=== PATIENT | male | born 1980 | race Hispanic/Latino ===

== ENCOUNTER 2020-08-29 11:06 | Outpatient (CLI) | payer OTHER, SELFPAY ==
--- NOTE | ~2020-08-29 | XR_ITS ---
EXAMINATION: XR finger 3rd LT min 2V DATE: 08/29/2020 11:33 INDICATION: Pain and inability to move the third distal interphalangeal joint post injury. TECHNIQUE: Dorsal palmar, lateral and 2 oblique views of the left third digit were obtained COMPARISON: Left hand radiographs dated 12/16/2011 FINDINGS: Mallet finger deformity of the left third digit. Unchanged tiny ossicle without evident donor site al ester the palmar rim of the base of the left third middle phalanx which could be either degenerative or sequela of old trauma. No acute fracture. Joint spaces are normal. Soft tissues are unremarkable. IMPRESSION: 1. . Mallet finger deformity with flexion at the left third distal interphalangeal joint without othe r acute osseous abnormality which could be related to injury to the extensor tendon. Reviewed, dictated and finalized at location B. IMPRESSION: 1. . Mallet finger deformity with flexion at the left third distal interphalang eal joint without other acute osseous abnormality which could be related to inj ury to the extensor tendon.
== END 2020-08-29 11:07 | disposition home or self-care (01) ==
LOC: ANHIMG 11:20
PROVIDERS: PCP Family Medicine; Visit Provider Nurse Practitioner Family
DX: M20.012 Mallet finger of left finger(s) (principal)
CPT/HCPCS: 73140

== ENCOUNTER 2022-08-08 07:49 | Outpatient (CLI) | payer OTHER, SELFPAY ==
[2022-08-08 08:35] LABS: Alanine Aminotransferase 24 U/L (6-50); Albumin Level 4.5 g/dL (3.5-5.1); Alkaline Phosphatase 59 U/L (38-126); Anion Gap 9 mmol/L (8-16); Aspartate Amino Transferase 24 U/L (17-59); Bilirubin,Total 0.6 mg/dL (0.2-1.3); Blood Urea Nitrogen 15 mg/dL (9-20); Carbon Dioxide 27 mmol/L (22-30); Chloride 103 mmol/L (98-107); Cholesterol 194 mg/dL (0-200); Estimated Glomerular Filt Rate > 60; Glucose 114 mg/dL (65-110); HDL Direct 39 mg/dL; Potassium 4.2 mmol/L (3.4-5.0); Sodium 139 mmol/L (137-145); Triglycerides 253 mg/dL (<150)
[2022-08-08 08:47] LABS: LDL Cholesterol Direct 112 mg/dL
[2022-08-08 08:50] LABS: Hematocrit 45.5 % (42.0-52.0); Hemoglobin 15.8 g/dL (14.0-18.0); Mean Corpuscular HGB Conc 34.7 g/dl (32-36); Mean Corpuscular Hemoglobin 31.1 pg (26-34); Mean Corpuscular Volume 89.6 fl (80-100); Mean Platelet Volume 9.8 fl (7.4-10.4); Platelet Count Result 178 k/mm3 (150-375); Red Blood Count 5.08 M/mm3 (4.6-6.20); Red Cell Distribution Width 12.8 % (11.5-14.5); White Blood Count 6.8 K/mm3 (4.5-10.0)
[2022-08-08 09:05] LABS: Prostate Specific Antigen 0.5 ng/mL (< OR = 4.0)
[2022-08-08 20:24] LABS: Vitamin D 25 Hydroxy 37.6 ng/mL
[2022-08-13 13:45] LABS: Testosterone Free 66.6 pg/mL (35.0-155.0); Testosterone Total 258 ng/dL (250-1100)
== END 2022-08-08 07:50 | disposition home or self-care (01) ==
LOC: ANHLAB 07:50
PROVIDERS: PCP Family Medicine; Visit Provider Nurse Practitioner Family
DX: Z13.29 Encounter for screening for other suspected endocrine disorder (principal); Z13.220 Encounter for screening for lipoid disorders; Z12.5 Encounter for screening for malignant neoplasm of prostate; R53.83 Other fatigue; K21.9 Gastro-esophageal reflux disease without esophagitis; E55.9 Vitamin D deficiency, unspecified; Z87.19 Personal history of other diseases of the digestive system; Z13.1 Encounter for screening for diabetes mellitus; F41.9 Anxiety disorder, unspecified
CPT/HCPCS: 36415; 80053; 80061; 82306; 84153; 84402; 84403; 84443; 85027

== ENCOUNTER 2022-09-10 09:42 | Outpatient (CLI) | payer OTHER, SELFPAY ==
[2022-09-10 10:04] LABS: Glucose 105 mg/dL (65-110)
== END 2022-09-10 09:43 | disposition home or self-care (01) ==
LOC: ANHLAB 09:43
PROVIDERS: PCP Family Medicine; Visit Provider Nurse Practitioner Family
DX: R73.01 Impaired fasting glucose (principal)
CPT/HCPCS: 36415; 82947

== ENCOUNTER 2022-09-24 01:21 | Day surgery (SDC) | payer OTHER, SELFPAY ==
[2022-09-19 10:44] VITALS: BMI 29.0
[2022-09-24 13:52] VITALS: BP 157/91; PULSE 65; RESP 17; TEMP 36.5; O2SAT 99
[2022-09-24] MEDS: LACTATED RINGERS 1,000 ML 150 ML IV CONT (14:00)
--- NOTE | 2022-09-24 14:08 | WPDANESEPPF ---
Anes - Initial Pre Proc Eval Procedure: Operation Date: 09/24/22 15:00 Proposed Procedures p Esophagogastroduodenoscopy EGD - Rodrick Ordaz MD Date/Time: 09/24/22 14:08 Surgeon: Rodrick Ordaz MD Pre Op Diagnosis: epigastric pain & GERD Patient Data Age: 42 Gender: M Height: 1.7 m Weight: 83.7 kg Last Vital Signs Temp 97.7 F 09/24/22 13:52 Pulse 65 09/24/22 13:52 Resp 17 09/24/22 13:52 BP 157/91 H 09/24/22 13:52 Pulse Ox 99 09/24/22 13:52 O2 Del Method Room Air 09/24/22 13:52 Allergies Allergy/AdvReac Type Severity Reaction Status Date / Time Sulfa (Sulfonamide Allergy Rash Verified 09/24/22 13:51 Antibiotics) Home Medications Medication Instructions Recorded Confirmed Type omeprazole 10 mg capsule,delayed 10 mg PO DAILY 08/30/20 09/24/22 History release duloxetine 30 mg capsule,delayed 30 mg PO DAILY #30 caps 08/07/22 09/24/22 Rx release (Cymbalta) tizanidine 2 mg tablet 2 mg PO QHS PRN muscle spasticity 08/07/22 09/24/22 Rx #20 tabs Patient hx anesthesia problems: none Family hx anesthesia problems: none Results Review: All pre-operative results and documents have been reviewed as part of the pre-operative evaluation. [facility] Surgical History Surgical History History of right knee surgery 07/2013 History of shoulder surgery right shoulder - 2017 Social History Social History Smoking status: Never smoker Alcohol intake: current Alcohol use details: socially Substance use: never Substance use type: does not use Living arrangements: with family Spiritual care concerns: No Anes - Eval Final PreProcedure Day of Procedure 09/24/22 14:08 Patient weight: normal Heart: regular rate and rhythm Lungs: clear to auscultation Airway: Mallampati scale class II Neurological: alert and oriented Last oral intake: >/= 8 hours Emergent: no Anesthetic plan: proceed Anesthesia type and monitoring: general GIVS and standard monitoring Results Review: All pre-operative results and documents have been reviewed as part of the pre-operative evaluation. Informed Consent: The patient's anesthetic plan and its attendant risks and benefits were discussed with the patient/family/POA. Questions were solicited and answers provided to the satisfaction of the patient/family/POA.
--- NOTE | 2022-09-24 14:54 | WPDHPUPDATE1 ---
History and Physical Update Update Date/Time: 09/24/22 14:54 History and Physical has been reviewed, including an updated exam of the patient. There are NO changes in the patient's condition. Risks, benefits, and alternatives have been discussed and questions answered. Patient agrees to proceed with procedure.
[2022-09-24 15:09] VITALS: BP 118/79; PULSE 76; RESP 16; O2SAT 97
[2022-09-24 15:19] VITALS: BP 124/80; PULSE 70; RESP 18; O2SAT 97
[2022-09-24 15:29] VITALS: BP 127/80; PULSE 69; RESP 15; O2SAT 98
== END 2022-09-24 15:41 | disposition home or self-care (01) ==
PROVIDERS: PCP Family Medicine; Visit Provider Internal Medicine Gastroenterology
PROC: 0DJ08ZZ Inspection of Upper Intestinal Tract, Via Natural or Artificial Opening Endoscopic (ICD-10-PCS; CPT 43235; principal; 2022-09-24 15:00)
DX: K21.9 Gastro-esophageal reflux disease without esophagitis (principal)
CPT/HCPCS: 43239; 88305; J2704; J7120

== ENCOUNTER 2023-08-11 10:01 | Outpatient (CLI) | payer BC, OTHER, SELFPAY ==
[2023-08-11 11:24] LABS: Basophils Percent Auto 0.4 % (0.2-1.2); Eosinophils Absolute Auto 0.1 K/mm3 (0-0.3); Eosinophils Percent Auto 0.8 % (0-4.4); Hematocrit 45.4 % (42.0-52.0); Hemoglobin 15.8 g/dL (14.0-18.0); Immature Granulocyte Absolute 0.06 K/mm3 (0.00-0.031); Immature Granulocyte Percent A 0.8 % (0-0.5); Lymphocytes Absolute Auto 1.66 K/mm3 (0.9-3.2); Lymphocytes Percent Auto 23.1 % (18.3-44.2); Mean Corpuscular HGB Conc 34.8 g/dl (32-36); Mean Corpuscular Hemoglobin 31.1 pg (26-34); Mean Corpuscular Volume 89.4 fl (80-100); Mean Platelet Volume 9.7 fl (7.4-10.4); Monocytes Absolute Auto 0.5 K/mm3 (0.1-0.6); Monocytes Percent Auto 7.5 % (2.6-8.5); Neutrophils Absolute Auto 4.8 K/mm3 (1.3-6.7); Neutrophils Percent Auto 67.4 % (45.5-73.1); Platelet Count Result 173 k/mm3 (150-375); Red Blood Count 5.08 M/mm3 (4.6-6.20); Red Cell Distribution Width 12.1 % (11.5-14.5); White Blood Count 7.2 K/mm3 (4.5-10.0)
[2023-08-11 11:41] LABS: Alanine Aminotransferase 28 U/L (6-50); Albumin Level 4.8 g/dL (3.5-5.1); Alkaline Phosphatase 55 U/L (38-126); Anion Gap 5 mmol/L (8-16); Aspartate Amino Transferase 31 U/L (17-59); Bilirubin,Total 0.8 mg/dL (0.2-1.3); Blood Urea Nitrogen 21 mg/dL (9-20); Calcium 9.3 mg/dL (8.4-10.2); Carbon Dioxide 31 mmol/L (22-30); Chloride 102 mmol/L (98-107); Cholesterol 223 mg/dL (0-200); Estimated Glomerular Filt Rate > 60; Glucose 102 mg/dL (65-110); HDL Direct 40 mg/dL; Potassium 4.3 mmol/L (3.4-5.0); Sodium 138 mmol/L (137-145); Triglycerides 268 mg/dL (<150)
[2023-08-11 11:51] LABS: LDL Cholesterol Direct 122 mg/dL
[2023-08-12 17:52] LABS: Prostate Specific Antigen 0.6 ng/mL (< OR = 4.0)
== END 2023-08-11 10:02 | disposition home or self-care (01) ==
LOC: ANHLAB 10:03
PROVIDERS: PCP Family Medicine; Visit Provider Physician Assistant Medical
DX: R73.01 Impaired fasting glucose (principal); Z13.29 Encounter for screening for other suspected endocrine disorder; Z12.5 Encounter for screening for malignant neoplasm of prostate; Z13.220 Encounter for screening for lipoid disorders; Z87.19 Personal history of other diseases of the digestive system; K21.9 Gastro-esophageal reflux disease without esophagitis; E78.5 Hyperlipidemia, unspecified
CPT/HCPCS: 36415; 80053; 80061; 84153; 85025; G0103

== ENCOUNTER 2024-10-30 06:58 | Emergency (ER) | payer OTHER, SELFPAY ==
[2024-10-30 07:09] VITALS: BP 151/95; PULSE 71; RESP 16; TEMP 36.4; O2SAT 99
[2024-10-30] MEDS: TETANUS,DIPHTHERIA,AC PERTUSSIS ADULT (0.5 ML) BOOSTRIX IM (07:36)
--- NOTE | 2024-10-30 07:58 | ED_ITS ---
HPI - General Adult General Chief complaint: Wound/Laceration Stated complaint: finger laceration Time Seen by Provider: 10/30/24 07:17 History of Present Illness HPI narrative: Patient is a 44-year-old gentleman presents emergency department with chief complaint of laceration. Patient reports that he is left-hand dominant reports that he was doing dishes and cut his left index finger with a knife. Related Data Home Medications ?Medication ?Instructions ?Recorded ?Confirmed ?Last Taken ?Type omeprazole 10 mg capsule,delayed 10 mg PO DAILY 08/30/20 08/11/23 09/23/22 History release Allergies Allergy/AdvReac Type Severity Reaction Status Date / Time Sulfa (Sulfonamide Allergy Rash Verified 10/30/24 07:35 Antibiotics) Review of Systems Review of Systems: A 10 system review of systems was completed on the patient and is negative except for what is stated in the HPI. Nursing and ancillary documentation was reviewed. [facility] Past Medical History Medical History BMI 28.0-28.9,adult Surgical History Surgical History History of shoulder surgery right shoulder - 2018 History of right knee surgery 07/2013 Family History Family History Father No problems noted. Mother No problems noted. Sibling No problems noted. 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 Gender identity (if verbalized by the patient): Male Spiritual care concerns: No Exam Narrative: GENERAL: Well-appearing, well-nourished, and in no acute distress. HEAD: Normocephalic, atraumatic. EYES: PERRLA and EOMI. ENT: Nares clear, no rhinorrhea or epistaxis. Mucous membranes moist. NECK: Supple. CHEST: Clear to auscultation. No respiratory distress. HEART: Regular rate and rhythm. No murmur heard. Normal peripheral pulses. ABDOMEN: Soft, nontender, nondistended, normal active bowel sounds. EXTREMITIES: Normal range of motion. No edema. 1 cm laceration to the volar aspect left index finger no tendon laceration, intact motor and sensory SKIN: Warm, dry, no rash. NEURO: No focal deficits. Alert and oriented x3. PSYCH: Normal mood and affect. Course Vital Signs Vital signs: Vital Signs Temperature 36.4 C 10/30/24 07:09 Pulse Rate 71 10/30/24 07:09 Respiratory Rate 16 10/30/24 07:09 Blood Pressure 151/95 H 10/30/24 07:09 Pulse Oximetry 99 10/30/24 07:09 Temperature 36.4 C 10/30/24 07:09 Pulse Rate 71 10/30/24 07:09 Respiratory Rate 16 10/30/24 07:09 Blood Pressure 151/95 H 10/30/24 07:09 Pulse Oximetry 99 10/30/24 07:09 Procedures Laceration Laceration 1: Date: 10/30/24 Time: 08:02 Site: hand ( left index finger) Side (If applicable): left Size (cm): 1 Description: linear Depth: simple, single layer Local Anesthetic: lidocaine 1% Amount of anesthesia used (mL): 3 Pre-repair: wound explored, irrigated and irrigated extensively ====== Skin Level ====== Skin layer closed with: nylon Size (cm): 4-0 Number of sutures: 3 Technique: simple, interrupted ====== Subcutaneous Layer ====== ====== Muscle Layer ====== ====== Tendon Layer ====== Medical Decision Making [facility] Narrative Medical decision making narrative: differential diagnosis includes ear laceration, patient's tetanus status was updated the wound was closed Vital Signs Vital Signs: Vital Signs Temperature 36.4 C 10/30/24 07:09 Pulse Rate 71 10/30/24 07:09 Respiratory Rate 16 10/30/24 07:09 Blood Pressure 151/95 H 10/30/24 07:09 Pulse Oximetry 99 10/30/24 07:09 Temperature 36.4 C 10/30/24 07:09 Pulse Rate 71 10/30/24 07:09 Respiratory Rate 16 10/30/24 07:09 Blood Pressure 151/95 H 10/30/24 07:09 Pulse Oximetry 99 10/30/24 07:09 Discharge Plan Discharge Clinical Impression: Laceration of left index finger Qualifiers: Encounter type: initial encounter Damage to nail status: without damage Foreign body presence: without foreign body Qualified Code(s): S61.211A - Laceration without foreign body of left index finger without damage to nail, initial encounter Patient Disposition: Home, Self-Care Condition: Stable Instructions: Antibiotic Form Additional Instructions: you have 3 sutures that had been placed in your finger. This should be removed in 7-10 days. Please watch for signs of infection if you develop redness swelling drainage of pus from the wound please seek re-evaluation Patient Language: Italian Prescriptions: No Action omeprazole 10 mg capsule,delayed release(DR/EC) 10 mg PO DAILY tizanidine 2 mg tablet 2 mg PO QHS PRN (Reason: muscle spasticity) Qty: 20 0RF Follow-up/Referrals: Josh Cabral MD [Primary Care Provider] - Time of Disposition: 08:05
[2024-10-30 08:23] VITALS: BP 126/87; PULSE 65; RESP 16; O2SAT 100
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
--- OUTSIDE RECORDS SUMMARY | 2024-11-02 20:34 | XMS_ITS | Encounter Summary ---
Author Organization 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
--- OUTSIDE RECORDS SUMMARY | 2024-11-02 20:34 | XMS_ITS | Encounter Summary ---
Author Organization [facility] Address [address] [place] [address] Phone Care Team Providers Care Advice Line Rn Name Role Phone Josh Cabral MD Primary Care Provider [phone] Reason for Visit * Reason Comments Procedure Encounter Details Date Type Department Care Team (Late st Contact Info) Description 06/17/2019 8:45 AM CDT Procedure visit [facility] Gastroenter[facility] [address] [place] [address] [place] [id number] Hepatic steatosis Social History Tobacco Use Types Packs/Day Years Used Date Smoking Tobacco: Never Alcohol Use Standard Drinks/Week Comments Yes 0 (1 standard drink = 0.6 oz pur e alcohol) Sex and Gender Information Value Date Recorded Sex Assigned at Not on file 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 Report printed and given to physician for review. Scanned into chart. documented in this encounter Plan of Treatment Not on file documented as of this encounter Procedures Procedure Name Priority Date/Time Associated Diagnosis Comments LIVER ELASTOGRAPHY W/O IMAGI NG W/I&R Routine 06/17/2019 Hepatic steatosis documented in this encounter Results * Liver Elastography w/o Imaging W/I&R - (06/17/2019) Anatomical Region Laterality Modality Other us Sandy Daugherty MD GI PROCEDURE ORDERAB LES Final Result documented in this encounter Visit Diagnoses Diagnosis Hepatic steatosis Other chronic nonalcoholic liver disease documented in this encounter Care Teams Advice Line Rn Relationship Specialty Start Date End Date Josh Cabral MD PCP - General 06/11/16 documented as of this encounter
--- OUTSIDE RECORDS SUMMARY | 2024-11-02 20:34 | XMS_ITS | Encounter Summary ---
Author Name [facility] Address [address] [place] [id number] Care Team Providers Care Panelbeater Name Role Phone YEN WORKMAN Primary Care Provider Cliff anton Selected Encounter This section includes the information on record at NH for the Encounter. Date/Time Encounter Type Encounter Description Reason Pro vider Source Jan 03, 2024 10:43 AM Outpatient Encounter ADMIN PAT ACTIVTIES (MASNONCT) IHE Encounter Template Text not used by NH Social History: Smoking Status (Most current) and Tobacco Use (All prior to encounter date) This section includes the most current, and the historical, smoking and tobacco- related health factors from the NH facility where the Encounter took place. Current Smoking Status This section includes the most current smoking, or tobacco-related health factor, from the NH facility where the Encounter took place. Date/Time Current Smoking Status Comment Jose ity Aug 08, 2005 12:53 PM CURRENT NON-TOBACC O USER-HX OF USE [facility] Tobacco Use History This section includes a history of the smoking, or tobacco-related health factors, that were collected on or before the date of the Encounter. The data comes from the NH facility where the Encounter took place. Date/Time Smoking Status/Tobacco Use Comment F heidi Aug 08, 2005 12:53 PM TOBACCO TERMINATION STAGE [facility] Nov 03, 2001 01:27 PM CURRENT NON-TOBACC O USER-HX OF USE stopped 09-17 [facility] Encounter Notes: All associated encounter notes This section contains the clinical notes associated to the Encounter. Date/Time Encounter Note(s) Provider Source Jan 03, 2024 10:45 AM ADMINISTRATIVE NOT E: LOCAL TITLE: ADMINISTRATIVE ST STANDARD TITLE: ADMINISTRATIVE NOTE DATE OF NOTE: JAN 03, 2024@10:45 ENTRY DATE: JAN 03, 2024@10:45:06 AUTHOR: NAKITA RODNEY EXP COSIGNER: URGENCY: STATUS: COMPLETED Minimum Scheduling attempts to contact the [facility] have been made. Clinic: NEW PATIENT APPT PRIMARY CARE First Call to - unsuccessful schedulin01/03/2024 Unable to contact , letter sent:01/03/2024 Additional comments:CALLED TO SCHED NEW PT APPT, LMTCB SENT LTTR [facility] was called to offer healthcare with a PCP within the [facility], per enrolled but not seen in project. /betty/ NAKITA RODNEY [employer]ATION ASSISTANT Signed: 01/03/2024 10:45 NAKITA RODNEY [facility] Jan 03, 2024 10:43 AM PRIMARY CARE LETTE RS: LOCAL TITLE: PC NEW PATIENT NO CONTACT LETTER [facility] TITLE: PRIMARY CARE LETTERS DATE OF NOTE: JAN 03, 2024@10:43 ENTRY DATE: JAN 03, 2024@10:43:13 AUTHOR: NAKITA RODNEY EXP COSIGNER: URGENCY: STATUS: COMPLETED [facility] [address] [place] [address] JAN 03, 2024 [place] [address] [address] [place], [place] [address] Dear [place], Thank you for your interest in establishing care with a Primary Care Provider at the [facility]. Your Primary Care Provider is the clinical leader of your Patient Aligned Care Team (PACT). Your PACT Team manages and coordinates your comprehensive health care services. Primary Care includes, but is not limited to: diagnosis and management of acute and chronic health conditions, health promotion, disease prevention, overall care management, post-deployment care, and patient and caregiver education. If you would like more information, please visit [email or web address] We have been unsuccessful in our attempts to contact you to schedule your initial appointment. Based on your current residence, the clinic recommended for your primary care needs is: [place] [address] We are happy to accommodate your request with another clinic, if needed. Please call to schedule your initial appointment. Thank you for your service, and we look forward to hearing from you. Sincerely, NAKITA RODNEY ADVANCED [employer]ATION ASSISTANT [place] [facility]
--- OUTSIDE RECORDS SUMMARY | 2024-11-02 20:34 | XMS_ITS | Encounter Summary ---
Author Organization [facility] Medical [facility] Address [address] [place] [address] Care Team Providers Care Collections Agent Name Role Phone Josh Cabral MD Primary Care Provider + [phone] Reason for Visit * Reason Comments Sleep Apnea AutoPAP Follow Up Encounter Details Date Type Department Care Team (Late st Contact Info) Description 03/02/2021 11:00 AM CDT Telemedicine [facility] [address] [place] [address] [phone] Angely Giraldo, BEAN WEIGHER [address] 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 Subjective/Objective Patient ID: Logan Soto is a 40 y.o. male. This was a telemedicine visit with Logan Soto which took place via Real-time video connection (ralali, [employer] or similar). During the visit, I was located in my office at [address] [place] [address] and the patient was located at his home in the [facility]. The session started at 11:00a.m. and ended at 11:21 a.m.. The patient has been informed that the visit may not be secure and acknowledged the information. I have explained the option of participating in a telephone or video visit during the [facility] emergency to the patient. After being given an opportunity to ask questions about and discuss this type of visit, the patient verbally consented to proceeding with the telephone/video visit.The patient understands that this service replaces an office visit and they may be billed and/or responsible for any applicable copayments. Angely Giraldo NP Chief Complaint Sleep Apnea and AutoPAP Follow Up HPI The patient has follow-up today for sleep apnea. He was originally diagnosed with sleep apnea on January 18, 2015 with an apnea-hypopnea index of 11 and desaturations to 91%. He is using air sense 10 APAP set from 4-20 cm water pressure with 97% use greater than 4 hours review of the last 30 nights. His average nightly use is 8 hours and 10 minutes with good control of apneas with an AHI of 2.3 events per hour. A very good mask seal is noted with his Airfit P 10 medium nasal pillows with the median leak of 0 liters/minute. His APAP pressures ranging from 7.3 to maximum 11.1 cm water pressure. Heis benefitting from the use of his APAP machine. Patient's comorbid conditions include GERD, arthritis and BMI of 27. He denies any changes in his health history. He has lost 7 lb since his last office visit. Campbell Sleepiness Scale & Score (1-24): Campbell Sleepiness Scale Sitting and reading: Would never doze Watching TV: Would never doze Sitting, inactive in a public place (e.g. a theatre or a meeting): Would never doze As a passenger in a car for an hour without a break: Would never doze Lying down to rest in the afternoon when circumstances permit: Would never doze Sitting and talking to someone: Would never doze Sitting quietly after a lunch without alcohol: Would never doze In a car, while stopped for a few minutes in traffic: Would never doze Total score: 0 Review of Systems Constitutional: Positive for unexpected weight change (7 lb weight loss). Negative for appetite change and fatigue. HENT: Negative for congestion, hearing loss, postnasal drip, rhinorrhea, sore throat and trouble swallowing. Eyes: Negative for photophobia. Respiratory: Negative for apnea, cough, choking and shortness of breath. Cardiovascular: Negative for chest pain and palpitations. Gastrointestinal: Negative for abdominal pain. Endocrine: Negative for cold intolerance and heat intolerance. Genitourinary: Negative for frequency. Musculoskeletal: Positive for arthralgias. Negative for back pain, gait problem and neck pain. Skin: Negative for rash. Neurological: Negative for seizures, syncope and headaches. Hematological: Does not bruise/bleed easily. Psychiatric/Behavioral: Negative for agitation and sleep disturbance. The patient is not nervous/anxious and is not hyperactive. Ht 170.2 cm (5' 7 ) Wt 78.5 kg (173 lb) BMI 27.10 kg/m?? Physical Exam Vitals and nursing note reviewed. Constitutional: General: He is not in acute distress. Appearance: Normal appearance. He is not ill-appearing or diaphoretic. HENT: Head: Normocephalic and atraumatic. Right Ear: External ear normal. Left Ear: External ear normal. Nose: Nose normal. No congestion or rhinorrhea. Eyes: General: Right eye: No discharge. Left eye: No discharge. Pupils: Pupils are equal, round, and reactive to light. Pulmonary: Effort: Pulmonary effort is normal. No respiratory distress. Breath sounds: No stridor. No wheezing. Musculoskeletal: Cervical back: Normal range of motion. No rigidity. Skin: General: Skin is dry. Coloration: Skin is not jaundiced. Findings: No rash. Neurological: Mental Status: He is alert and oriented to person, place, and time. Motor: No weakness. Coordination: Coordination normal. Psychiatric: Mood and Affect: Mood normal. Behavior: Behavior normal. Thought Content: Thought content normal. Judgment: Judgment normal. Assessment/Plan He will wear his APAP set from 4-20 cm water pressure nightly for 7-9 hours. Reviewed and discussedproper cleaning of his APAP equipment. Reviewed and discussed proper timing of when to change his APAP supplies. Updated supplies will be ordered for the patient. He will try to get 30-45 minutes of activity daily to help with sleep quality and with weight management. He will try to eat a diet rich in vegetables, fruit, lean protein low in carbohydrates to help with weight management. Will have 1 year follow-up. Diagnoses and all orders for this visit: Obstructive sleep apnea (Primary) - PAP Machine Replacement Supplies Overweight with body mass index (BMI) of 27 to 27.9 in adult - PAP Machine Replacement Supplies This note was dictated using voice recognition system errors in seam taper machine may have occurred. documented in this encounter Plan of Treatment Not on file documented as of this encounter Visit Diagnoses Diagnosis Obstructive sleep apnea- Primary Obstructive sleep apnea (adult) (pediatric) Overweight with body mass index (BMI) of 27 to 27.9 in adult documented in this encounter Orders General Supply Count Last Ordered Date First Or dered Date PAP MACHINE REPLACEMENT SUPPLIES 1 03/02/20 21 documented in this encounter Care Teams Collections Agent Relationship Specialty Start Date End Date Josh Cabral MD PCP - General 06/11/16 documented as of this encounter
--- OUTSIDE RECORDS SUMMARY | 2024-11-02 20:34 | XMS_ITS | Encounter Summary ---
Author Organization [facility] Address [address] [place] [address] Care Team Providers Care Squeegeer And Former Name Role Phone Unavailable Primary Care Provider Unavailabl e Reason for Visit * Reason Comments Rash after takng ABX Encounter Details Date Type Department Care Team (Late st Contact Info) Description 06/15/2016 8:00 AM CDT Office Visit [facility] [address] [place] [phone] Provider1, [facility] Drug reaction, initial encounter (Primary Dx) Social History Tobacco Use Types Packs/Day Years Used Date Smoking Tobacco: Never Smokeless Tobacco: Never Alcohol Use Standard Drinks/Week Comments Yes 0 (1 standard drink = 0.6 oz pur e alcohol) occasional Sex and Gender Information Value Date Recorded Sex Assigned at Not on file Gender Identity Not on file Sexual Orientation Not on file documented as of this encounter Last Filed Vital Signs Vital Sign Reading Time Taken Comments Blood Pressure 120/80 06/15/2016 8:08 AM CDT Pulse 81 06/15/2016 8:08 AM CDT Temperature 36.8 ??C (98.2 ??F) 06/15/2016 8:08 AM CD T Respiratory Rate 16 06/15/2016 8:08 AM CDT Oxygen Saturation 99% 06/15/2016 8:08 AM CDT Inhaled Oxygen Concentration - - Weight 81 kg (178 lb 8 oz) 06/15/2016 8:08 AM CD T Height 172.7 cm (5' 8 ) 06/15/2016 8:08 AM CDT Body Mass Index 27.14 06/15/2016 8:08 AM CDT documented in this encounter Patient Instructions * Patient Instructions* Nisreen Villegas APRN-CNP - 06/15/2016 8:38 AM CDT Images from the original note were not included. Antibiotic Medication Allergy WHAT YOU NEED TO KNOW: What is an antibiotic medication allergy? An antibiotic medication allergy is a harmful reaction amanda antibiotic. The reaction can start soon after you take the medicine, or days or weeks after you stop. Healthcare providers cannot know ahead of time if you will have an allergic reaction. Your immune system may become sensitive to the antibiotic the first time you take it. You may have an allergic reaction the next time. The antibiotics most likely to cause an allergic reaction are penicillinsand cephalosporins. What are the signs and symptoms of an allergic reaction to an antibiotic? ?? Mild symptoms include red, itchy, flaky, or swollen skin. You may have a flat, red area on your skin that is covered with small bumps. You may also have hives. ?? Severe symptoms include skin that blisters or peels, vision problems, and severe swelling or itching. Severe reactions include conditions such as toxic epidermal necrolysis (TEN). Ask your healthcare provider for more information on TEN and other serious conditions. ?? Anaphylaxis symptoms include throat tightness, trouble breathing, tingling, dizziness, and wheezing. Anaphylaxis is a sudden, life-threatening reaction that needs immediate treatment. What increases my risk for an antibiotic medication allergy? ?? Other allergies, such as to cats ?? A family history of antibiotic allergies ?? Frequent use of antibiotics ?? A long-term illness that makes your immune system more sensitive How is an antibiotic medication allergy diagnosed? Your healthcare provider will ask about your medical history and allergies. You may also need any of the following: ?? Blood tests: You may need blood taken to give caregivers information about how your body is working. The blood may be taken from your hand, arm, or IV. ?? A patch test means a small amount of the antibiotic is put on your skin. The area is covered with a patch that stays on for 2 days. Then your healthcare provider will check your skin for a reaction. ?? A skin prick test means a small drop of the antibiotic is put on your forearm and your skin is pricked with a needle. Your healthcare provider will watch for a reaction. ?? An intradermal test means a small amount of antibiotic liquid is put under the surface of your skin. Your healthcare provider will watch for a reaction. ?? A drug provocation test is also known as an antibiotic challenge test. Your healthcare provider gives you increasing doses of the antibiotic medicine and watches for a reaction. How is an allergic reaction to an antibiotic treated? ?? Antihistamines decrease mild symptoms such as itching or a rash. ?? Epinephrine is medicine used to treat severe allergic reactions such as anaphylaxis. ?? Steroids: This medicine may be given to decrease inflammation. ?? Desensitization may be done after you have a reaction, if you need to be treated with the antibiotic again. Your healthcare provider will give you small doses of the antibiotic over a few hours. He will treat any allergic reaction that you have. The dose is increased a little at a time until thefull dose is reached and the medicine stops causing an allergic reaction. You will have to take a dose of the antibiotic every day to keep your body desensitized. What steps do I need to take for signs or symptoms of anaphylaxis? ?? Immediately give 1 shot of epinephrine only into the outer thigh muscle. ?? Leave the shot in place as directed. Your healthcare provider may recommend you leave it in place for up to 10 seconds before you remove it. This helps make sure all of the epinephrine is delivered. ?? Call 911 and go to the emergency department, even if the shot improved symptoms. Do not drive yourself. Bring the used epinephrine shot with you. What safety precautions do I need to take if I am at risk for anaphylaxis? ?? Keep 2 shots of epinephrine with you at all times. You may need a second shot, because epinephrine only works for about 20 minutes and symptoms may return. Your healthcare provider can show you and family members how to give the shot. Check the expiration date every month and replace it before it expires. ?? Create an action plan. Your healthcare provider can help you create a written plan that explainsthe allergy and an emergency plan to treat a reaction. The plan explains when to give a second epinephrine shot if symptoms return or do not improve after the first. Give copies of the action plan and emergency instructions to family members, work and school staff, and daycare providers. Show them how to give a shot of epinephrine. ?? Carry medical alert identification. Wear medical alert jewelry or carry a card that says you have an antibiotic medicine allergy. Healthcare providers need to know that they should not give you this antibiotic. Ask your healthcare provider where to get these items. ?? Read medicine labels before you use any medicine. Do not take the medicine if it contains the antibiotic that you are allergic to. This includes topical medicines that you put on your skin. Ask a pharmacist if you are not sure. ?? Tell all healthcare providers about your allergy. Always tell your healthcare providers the names of medicines that you are allergic to and the symptoms of your allergic reactions. ?? Ask if you need to avoid other medicines. You may be allergic to other medicines if you had an allergic reaction to an antibiotic. Make sure you know the names of other medicines that you should not take. Call 911 for signs or symptoms of anaphylaxis, such as trouble breathing, swelling in your mouth orthroat, or wheezing. You may also have itching, a rash, hives, or feel like you are going to faint. When should I seek immediate care? ?? You have a rash with itchy, swollen, red spots. ?? You have blisters, or your skin is peeling. ?? You have trouble swallowing or your voice sounds hoarse. ?? You have a fast or pounding heartbeat. ?? Your skin or the whites of your eyes turn yellow. When should I contact my healthcare provider? ?? You think you are having an allergic reaction. Contact your healthcare provider before you take another dose of your antibiotic. ?? You have a rash. ?? You have a fever. ?? You have a sore throat or swollen glands. You will feel hard lumps when you touch your throat ifyour glands are swollen. ?? Your skin itches and becomes red when you are in sunlight. ?? You have questions or concerns about your condition, allergy, or care. CARE AGREEMENT: You have the right to help plan your care. Learn about your health condition and how it may be treated. Discuss treatment options with your caregivers to decide what care you want to receive. You always have the right to refuse treatment. The above information is an safety aide only. It is not intended as medical advice for individual conditions or treatments. Talk to your doctor, nurse or pharmacist before following any medical regimen to see if it is safe and effective for you. ?? 2016 [employer]. Information is for End User's use only and may not be sold, redistributed or otherwise used for commercial purposes. All illustrations and images included in CareNotes?? are the copyrighted property of [employer]. or [employer]. documented in this encounter Progress Notes * Nsireen Villegas APRN-CNP - 06/15/2016 8:43 AM CDT Images from the original note were not included. 06/15/2016 PCP: No primary care provider on file. CC: Chief Complaint Patient presents with ??? Rash after takng ABX . HPI: Logan Soto is a 35 y.o. male presents today at the [facility] with complaints reaction to bactrim that he has been taking for 9 days for a skin infection. Yesterday ears were burning and mild nausea. This am rash on trunk and arms. No fever, chills, wheezing, or SOB. Took last bactrimyester afternoon. Nothing OTC. Driving to [place] for vacation. No dizziness or vomiting. No outpatient prescriptions prior to visit. No facility-administered medications prior to visit. Past Surgical History Procedure Laterality Date ??? Knee arthroscopy No Known Allergies No family history on file. ROS: Pertinent information is noted in the HPI. ROS Exam: BP 120/80 mmHg Pulse 81 Temp(Src) 98.2 ??F (Oral) Resp 16 Wt 80.967 kg (178 lb 8 oz) BMI 27.15 kg/m2 SpO2 99% FiO2: General Appearance : No acute distress. Well nourished. Well developed. Psychiatric: Good eye contact. Friendly. Skin : Warm and dry. Erythematous macular/papular well defined rash to trunk and arms. Worse to theupper chest and back. Ears are mildly erythematous. HEENT: The nares are normal in appearance. Mucous membranes are moist without lesions. Neck: Supple. No lymphadenopathy Heart: Regular rate and rhythm. S1 and S2 are noted and no murmur is present. Lungs : Good air movement bilaterally. No wheezing, rhonchi, or rales are noted. Normal respiratoryeffort. Abdomen: Soft without mass or organomegaly, non-tender, with normal bowel sounds.No results found for this visit on 06/15/16. Impression: ICD-10-CM 1. Drug reaction, initial encounter T88.7XXA METHYLPREDNISOLONE ACETATE 20 MG INJ Patient Instructions Antibiotic Medication Allergy WHAT YOU NEED TO KNOW: What is an antibiotic medication allergy? An antibiotic medication allergy is a harmful reaction amanda antibiotic. The reaction can start soon after you take the medicine, or days or weeks after you stop. Healthcare providers cannot know ahead of time if you will have an allergic reaction. Your immune system may become sensitive to the antibiotic the first time you take it. You may have an allergic reaction the next time. The antibiotics most likely to cause an allergic reaction are penicillinsand cephalosporins. What are the signs and symptoms of an allergic reaction to an antibiotic? ?? Mild symptoms include red, itchy, flaky, or swollen skin. You may have a flat, red area on your skin that is covered with small bumps. You may also have hives. ?? Severe symptoms include skin that blisters or peels, vision problems, and severe swelling or itching. Severe reactions include conditions such as toxic epidermal necrolysis (TEN). Ask your healthcare provider for more information on TEN and other serious conditions. ?? Anaphylaxis symptoms include throat tightness, trouble breathing, tingling, dizziness, and wheezing. Anaphylaxis is a sudden, life-threatening reaction that needs immediate treatment. What increases my risk for an antibiotic medication allergy? ?? Other allergies, such as to cats ?? A family history of antibiotic allergies ?? Frequent use of antibiotics ?? A long-term illness that makes your immune system more sensitive How is an antibiotic medication allergy diagnosed? Your healthcare provider will ask about your medical history and allergies. You may also need any of the following: ?? Blood tests: You may need blood taken to give caregivers information about how your body is working. The blood may be taken from your hand, arm, or IV. ?? A patch test means a small amount of the antibiotic is put on your skin. The area is covered with a patch that stays on for 2 days. Then your healthcare provider will check your skin for a reaction. ?? A skin prick test means a small drop of the antibiotic is put on your forearm and your skin is pricked with a needle. Your healthcare provider will watch for a reaction. ?? An intradermal test means a small amount of antibiotic liquid is put under the surface of your skin. Your healthcare provider will watch for a reaction. ?? A drug provocation test is also known as an antibiotic challenge test. Your healthcare provider gives you increasing doses of the antibiotic medicine and watches for a reaction. How is an allergic reaction to an antibiotic treated? ?? Antihistamines decrease mild symptoms such as itching or a rash. ?? Epinephrine is medicine used to treat severe allergic reactions such as anaphylaxis. ?? Steroids: This medicine may be given to decrease inflammation. ?? Desensitization may be done after you have a reaction, if you need to be treated with the antibiotic again. Your healthcare provider will give you small doses of the antibiotic over a few hours. He will treat any allergic reaction that you have. The dose is increased a little at a time until thefull dose is reached and the medicine stops causing an allergic reaction. You will have to take a dose of the antibiotic every day to keep your body desensitized. What steps do I need to take for signs or symptoms of anaphylaxis? ?? Immediately give 1 shot of epinephrine only into the outer thigh muscle. ?? Leave the shot in place as directed. Your healthcare provider may recommend you leave it in place for up to 10 seconds before you remove it. This helps make sure all of the epinephrine is delivered. ?? Call 911 and go to the emergency department, even if the shot improved symptoms. Do not drive yourself. Bring the used epinephrine shot with you. What safety precautions do I need to take if I am at risk for anaphylaxis? ?? Keep 2 shots of epinephrine with you at all times. You may need a second shot, because epinephrine only works for about 20 minutes and symptoms may return. Your healthcare provider can show you and family members how to give the shot. Check the expiration date every month and replace it before it expires. ?? Create an action plan. Your healthcare provider can help you create a written plan that explainsthe allergy and an emergency plan to treat a reaction. The plan explains when to give a second epinephrine shot if symptoms return or do not improve after the first. Give copies of the action plan and emergency instructions to family members, work and school staff, and daycare providers. Show them how to give a shot of epinephrine. ?? Carry medical alert identification. Wear medical alert jewelry or carry a card that says you have an antibiotic medicine allergy. Healthcare providers need to know that they should not give you this antibiotic. Ask your healthcare provider where to get these items. ?? Read medicine labels before you use any medicine. Do not take the medicine if it contains the antibiotic that you are allergic to. This includes topical medicines that you put on your skin. Ask a pharmacist if you are not sure. ?? Tell all healthcare providers about your allergy. Always tell your healthcare providers the names of medicines that you are allergic to and the symptoms of your allergic reactions. ?? Ask if you need to avoid other medicines. You may be allergic to other medicines if you had an allergic reaction to an antibiotic. Make sure you know the names of other medicines that you should not take. Call 911 for signs or symptoms of anaphylaxis, such as trouble breathing, swelling in your mouth orthroat, or wheezing. You may also have itching, a rash, hives, or feel like you are going to faint. When should I seek immediate care? ?? You have a rash with itchy, swollen, red spots. ?? You have blisters, or your skin is peeling. ?? You have trouble swallowing or your voice sounds hoarse. ?? You have a fast or pounding heartbeat. ?? Your skin or the whites of your eyes turn yellow. When should I contact my healthcare provider? ?? You think you are having an allergic reaction. Contact your healthcare provider before you take another dose of your antibiotic. ?? You have a rash. ?? You have a fever. ?? You have a sore throat or swollen glands. You will feel hard lumps when you touch your throat ifyour glands are swollen. ?? Your skin itches and becomes red when you are in sunlight. ?? You have questions or concerns about your condition, allergy, or care. CARE AGREEMENT: You have the right to help plan your care. Learn about your health condition and how it may be treated. Discuss treatment options with your caregivers to decide what care you want to receive. You always have the right to refuse treatment. The above information is an safety aide only. It is not intended as medical advice for individual conditions or treatments. Talk to your doctor, nurse or pharmacist before following any medical regimen to see if it is safe and effective for you. ?? 2016 [employer]. Information is for End User's use only and may not be sold, redistributed or otherwise used for commercial purposes. All illustrations and images included in CareNotes?? are the copyrighted property of [employer] or [employer]. Treatment: Orders Placed This Encounter ??? METHYLPREDNISOLONE ACETATE 20 MG INJ There are no discontinued medications. Follow up /Instructions: Return if symptoms worsen or fail to improve. TOSIN Hernandez documented in this encounter Plan of Treatment Not on file documented as of this encounter Visit Diagnoses Diagnosis Drug reaction, initial encounter- Primary documented in this encounter Administered Medications Administered Medications Medication Order MAR Action Action Date Dose Rate Site Methylprednisolone 20mg Intramuscular Given 06/15/2016 80 mg Right Gluteal documented in this encounter
--- OUTSIDE RECORDS SUMMARY | 2024-11-02 20:34 | XMS_ITS | Continuity of Care Document ---
Author Name [facility] Organization [facility] Care Team Providers [facility] Sales Manager Name Role Phone [facility] Unavailable Unavailable Problems Combined list of problems from [facility] facilities. It does not include entries that were removed or entered in error. Problem Status Onset Date Problem Type Date of Resolution Comments Source Gastroesophageal reflux disease Active Condition [facility] Hepatitis Active Condition [facility] Hyperlipidemia Active Condition Jul 192004 Entered By: JOAQUIN ABDI Comment: possible [facility] Low Back Pain Active Condition [facility] Narcolepsy Active Condition Aug 01 Entered By: UMAIR FLOOD Comment: split night polysomnogram , [place] [facility] Narcolepsy, without CATAPLEXY (ICD-9-CM 347.00) Active Condition [facility] Pain of right shoulder joint Active Condition [facility] Sleep apnea Active Condition March 22, 2019 Entered By: PRAMOD KNAPP Comment: sleep study done 01/18/2015, no evidency of narcolepsy [facility] tinnitus Active Condition ALL TEST RESULTS ARE WNL, ALTHOUGH WHEN COMPARED TO A BASELINE TAKEN SEVERAL YEARS AGO, THERE IS A NOTCH FORMING AT 4K Hz THAT CAN BE ATTRIBUTED TO NOISE EXPOSURE. PT SHOULD MONITOR HEARING EVERY 18-24 MONTHS [facility] Allergies, Adverse Reactions, Alerts Combined list of allergies from [facility] facilities. It does not include entries that were removed or entered in error. Substance Category Reaction Severity Reaction type Status Date Reported Comments Source CATS Propensity to adverse reaction (finding) Itching of eye active 5 [facility] SULFA DRUGS Propensity to adverse reactions to drug (finding) active 9 [facility] Encounters Combined list of: 1) Encounters from [facility] of Veterans Affairs facilities going back up to thelast 18 months. 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 Location Location Details Encounter Type Encounter Number Reason For Visit Attending Provider ADM Date DC Date Status Disposition Source [address] [place] [address] Tarik GREGORIO ([facility]Aud iology) OUTPATIENT [id number] Hearing Loss ESTEFANY MENDOZA 01/11 Released w/o Limitations [address] [place] [address] Tarik GREGORIO ([facility])(A udiolog y) [facility] Outpatient Encounter [id number] 01/03 [facility] Outpatient Encounter [id number] CASS MCCOY 11/02 [facility] Procedures Combined list of: 1) Procedures from [facility] of Veterans Affairs facilities going back up to thelast 18 months, not all VA non-surgical procedures are included; 2) All procedures from the Department of [facility] facilities. Procedure Procedure Type Code Date Perfomer Comments Sour e ACOUSTIC REFLEX TESTING; DECAY 01/10/2005 [facility] SUPPLY OF SPECTACLES, EXCEPT PROSTHESIS FOR APHAKIA AND LOW VISION AIDS 04/11/2004 [facility] Acoustic Reflex Testing 01/11/2005 ESTEFANY MENDOZA [facility] Evoked Otoacoustic Kaya ions Limited 01/11/2005 ESTEFANY MENDOZA Threshold Audiogram (Pure Tone) Threshold Audiogram (Pure Tone) 63215 01/11/2005 ESTEFANY MENDOZA Tympanometry Tympanometry 34166 01/11/2005 HOSEA MENDOZA [facility] Acoustic Reflex Decay Test Acoustic Reflex Decay Test 27932 01/11/2005 ESTEFANY MENDOZA Social History Combined list of available smoking, tobacco, and other social history from Department of Defense and Veterans Affairs facilities. Social History Type Response Date Comment Sourc e Tobacco smoking status VTIS VA-TOBACCO NEVER USED 01/07/2019 [facility] History of tobacco use CURRENT NON-TOBACCO USER-HX OF USE 08/08/2005 [facility] History of tobacco use LIFETIME NON-TOBACCO USER 08/01/2005 [facility] History of tobacco use CURRENT NON-TOBACCO USER-HX OF USE 11/03/2001 stopped 09-17 [facility] This section is an empty social history section. [employer]
--- OUTSIDE RECORDS SUMMARY | 2024-11-02 20:34 | XMS_ITS | Encounter Summary ---
Author Organization [facility] [employer] Address [address] [place] [address] Care Team Providers Care Neon Sign Mechanic Name Role Phone Josh Carbal MD Primary Care Provider [phone] Reason for Visit * Reason Comments Sleep Apnea AutoPAP Follow Up Encounter Details Date Type Department Care Team (Late st Contact Info) Description 02/24/2020 10:00 AM CDT Telemedicine [facility] [address] [facility] [address] [place] [phone] Angely Giraldo, MINE ENGINEERING SUPERVISOR [address] [facility] [address] [place] [address] Obstructive sleep apnea (Primary Dx); Body mass index (BMI) of 29.0-29.9 in adult Social History Tobacco Use Types Packs/Day Years Used Date Smoking Tobacco: Never Alcohol Use Standard Drinks/Week Comments Yes 0 (1 standard drink = 0.6 oz pur e alcohol) Sex and Gender Information Value Date Recorded Sex Assigned at Not on file Legal 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 male. [facility] tele audio visual visit due to COVID-19 precautions. This was a telemedicine visit with Logan Soto which took place via Real-time audio/video communication. During the visit, I was located in my office at [address] [place] [address] and the patient was located home.. The session started at 10:09 a.m. and ended at 10:29 a.m.. The patient has been informed that the visit may not be secure and acknowledged the information. Chief Complaint Sleep Apnea and AutoPAP Follow Up HPI The patient was originally diagnosed with sleep apnea on January 18, 2015 with an apnea-hypopnea indexof 11 and desaturations 91%. This is a compliance visit for a new air sense 10 machine. A download of the last 60 nights shows 93% use greater than 4 hours on patient's APAP set from 4-20 cm water pressure. His average nightly uses 8 hours and 6 minutes with good control of his apneas with an average AHI of 2.1 events per hour. Excellent mask seal is noted with the median leak of 0 liters/minute.He is using Airfit P 10 medium nasal pillows. His APAP pressures range from 7.2 to maximum of 11 cmwater pressure. He is benefitting from the use of his APAP machine. His comorbid conditions include arthritis, GERD and BMI of 29. Patient states he likes his new machine it is much quiter and does not awaken him at night. He feels refreshed on his machine. Patient works for the [employer] he has been staying at home. [place] Sleepiness Scale & Score (1-24): [place] Sleepiness Scale Sitting and reading: Would never [...] Total score: 0 Review of Systems Constitutional: Negative for appetite change and fatigue. HENT: Negative for congestion, hearing loss, postnasal drip, rhinorrhea, sore throat and trouble swallowing. Eyes: Negative for photophobia. Respiratory: Negative for apnea, cough, choking and shortness of breath. Cardiovascular: Negative for chest pain and palpitations. Gastrointestinal: Negative for abdominal pain. Endocrine: Negative for cold intolerance and heat intolerance. Genitourinary: Negative for frequency. Musculoskeletal: Negative for arthralgias, back pain, gait problem and neck pain. Skin: Negative for rash. Neurological: Negative for seizures, syncope and headaches. Hematological: Does not bruise/bleed easily. Psychiatric/Behavioral: Negative for agitation and sleep disturbance. The patient is not nervous/anxious and is not hyperactive. Ht 170.2 cm (5' 7 ) Wt 81.6 kg (180 lb) BMI 28.19 kg/m?? Physical Exam Assessment/Plan The patient will wear his APAP machine set from 4-20 cm water pressure nightly for 7-9 hours. Reviewed and discussed with the patient the importance of good hygiene with his APAP machine reviewed proper cleaning. Reviewed timing of when to change his APAP supplies. Reviewed and discussed with the patient the importance of getting 30-45 minutes of activity daily to help reduce stress, promote weight loss and improved sleep quality. He will try to eat a diet richin fruits, vegetables and lean protein for overall good health and weight control. He will follow-up in the office in 1 year. Prior to seeing the patient his chart was reviewed reviewed patient's current history and problems, reviewed prior sleep study. A total of 17 minutes were spent with review of chart and history, testing and discussion with patient. Diagnoses and all orders for this visit: Obstructive sleep apnea (Primary) - PAP Machine Replacement Supplies Body mass index (BMI) of 29.0-29.9 in adult - PAP Machine Replacement Supplies This note was dictated using voice recognition system errors in manufacturing engineer paint may have occurred. documented in this encounter Plan of Treatment Not on file documented as of this encounter Visit Diagnoses Diagnosis Obstructive sleep apnea- Primary Obstructive sleep apnea (adult) (pediatric) Body mass index (BMI) of 29.0-29.9 in adult documented in this encounter Historical Medications * This list may reflect changes made after this encounter. hydrOXYzine (ATARAX) 25 mg tablet TK 1 T PO BID PRN FOR ANXIETY 12/17/2019 added in this encounter Orders General Supply Count Last Ordered Date First Or dered Date PAP MACHINE REPLACEMENT SUPPLIES 1 02/24/20 20 documented in this encounter Care Teams Neon Sign Mechanic Relationship Specialty Start Date End Date Josh Cabral MD PCP - General 06/11/16 documented as of this encounter
--- OUTSIDE RECORDS SUMMARY | 2024-11-02 20:34 | XMS_ITS | Referral Summary ---
Author Organization [facility] Address [address] [place] [address] Care Team Providers Care Filter Plant Operator Name Role Phone Josh Cabral MD Primary Care Provider [phone] [facility],non-owned Affiliates and Associated Physician Practices is amultiple site organization consisting of ambulatory clinics and hospital sitesin [place], [place], [place] and [place]. This disclosure is being madepursuant to the Care Everywhere program and may not contain all information available regarding this patient. Last updated 18.[facility] Allergies No known active allergies Medications * Be aware that medications may not be up to date on this document. Alwaysverify current medications with the patient. Medication Sig Dispensed Refills Start Date End Date Status ibuprofen (MOTRIN) 800 MG tablet Take 800 mg by mouth every 6 hours as needed for Pain (takes PRN) Active omeprazole (PRILOSEC) 20 MG capsule Take 20 mg by mouth daily before breakfast Active traMADol (ULTRAM) 50 MG tablet Take 50 mg by mouth every 6 hours as needed for Pain (PRN) Active Active Problems No known active problems Social History Tobacco Use Types Packs/Day Years Used Date Smoking Tobacco: Never Smokeless Tobacco: Never Alcohol Use Standard Drinks/Week Comments Yes 0 (1 standard drink = 0.6 oz pur e alcohol) occasional Sex and Gender Information Value Date Recorded Sex Assigned at Not on file Gender Identity Not on file Sexual Orientation Not on file Last Filed Vital Signs Vital Sign Reading [...] Mass Index 27.14 06/15/2016 8:08 AM CDT Plan of Treatment Not on file Administered Medications Care Teams Filter Plant Operator Relationship Specialty Start Date End Date Josh Cabral MD [address] [place] [address] PCP - General 10/07/22
--- OUTSIDE RECORDS SUMMARY | 2024-11-02 20:34 | XMS_ITS | Patient Health Summary ---
Author Organization [facility] Address [address] [place] [address] Care Team Providers Care Principal System Software Engineer Name Role Phone Josh Cabral MD Primary Care Provider [phone] Note from [facility],non-owned Affiliates and Associated Physician Practices is amultiple site organization consisting of ambulatory clinics and hospital sitesin [place], [place], [place] and [place]. This disclosure is being madepursuant to the Care Everywhere program and may not contain all information available regarding this patient. Last updated 18.[facility] Allergies No known active allergies Medications * Be aware that medications may not be up to date on this document. Alwaysverify current medications with the patient. * ibuprofen (MOTRIN) 800 MG tablet Take 800 mg by mouth every 6 hours as needed for Pain (takes PRN) * omeprazole (PRILOSEC) 20 MG capsule Take 20 mg by mouth daily before breakfast * traMADol (ULTRAM) 50 MG tablet Take 50 mg by mouth every 6 hours as needed for Pain (PRN) Active Problems No known active problems Social [...] Mass Index 27.14 06/15/2016 8:08 AM CDT Care Teams Principal System Software Engineer Relationship Specialty Start Date End Date Josh Cabral MD [address] [place] [address] PCP - General 10/07/22
--- OUTSIDE RECORDS SUMMARY | 2024-11-02 20:34 | XMS_ITS | Referral Summary ---
Author Organization [facility] Address [address] [place] [address] Care Team Providers Care Printed Circuit Designer Name Role Phone Josh Cabral MD Primary Care Provider Allergies Active Allergy Reactions Criticality Noted Date [...] 03/2019 Assessment & Plan (10/21/2019 10:38 AM RAILROAD SUPERVISOR OF ENGINES): He will try to practice good dietary habits eating more fresh vegetables, fruit and lean protein. He will try to get 45 minutes of activity daily to help promote weight loss. Obstructive sleep apnea 04/09/2018 Assessment & Plan (10/21/2019 10:38 AM RAILROAD SUPERVISOR OF ENGINES): Patient's machine is making strange noises. He [...] Overview (04/11/2017): Adult BMI 28.0-28.9 kg/sq m Social History Tobacco Use Types Packs/Day Years Used Date Smoking Tobacco: Never Alcohol Use Standard Drinks/Week Comments Yes 0 (1 standard drink = 0.6 oz pur e alcohol) Personal Safety Answer Date Recorded Getting School Help Needed Not on file 01/30 Sex and Gender Information Value Date Recorded Sex Assigned at Not on file Legal Sex Male 1:09 AM RAILROAD SUPERVISOR OF ENGINES Gender Identity Not on file Sexual Orientation Not on file Last Filed Vital Signs Vital Sign Reading Time Taken Comments Blood Pressure 116/76 10/21/2019 10:02 AM RAILROAD SUPERVISOR OF ENGINES Pulse 74 10/21/2019 10:02 AM RAILROAD SUPERVISOR OF ENGINES Temperature 36.9 ??C (98.4 ??F) 10/21/2019 10:[address] Respiratory Rate 15 10/21/2019 10:02 AM RAILROAD SUPERVISOR OF ENGINES Oxygen Saturation 96% 10/21/2019 10:02 AM RAILROAD SUPERVISOR OF ENGINES Inhaled Oxygen Concentration - - Weight 78.5 kg (173 lb) 03/02/2021 10:50 AM CDT Height 170.2 cm (5' 7 ) 03/02/2021 10:50 AM CDT Body Mass Index 27.1 03/02/2021 10:50 AM CDT Plan of Treatment Not on file Insurance Care Teams Printed Circuit Designer Relationship Specialty Start Date End Date Josh Cabral MD [facility] - General 06/11/16
--- OUTSIDE RECORDS SUMMARY | 2024-11-02 20:34 | XMS_ITS | Clinical Summary ---
Author Organization [facility] [employer] Address [address] [facility] [place] [address] Care Team Providers Care Shopper'S Aide Name Role Phone Josh Cabral MD Primary Care Provider [phone] Source Comments [facility] [employer],non-owned Affiliates and Associated Physician Practices is amultiple site organization consisting of ambulatory clinics and hospital sitesin [place], [place] and [place]. This disclosure is being madepursuant to the Care Everywhere program and may not contain all information available regarding this patient. Last updated 18.[employer] [employer] Allergies No known active allergies Medications * [...] 06/15/2016 8:08 AM CDT Plan of Treatment Health Maintenance Due Date Last Done Comments COLOGUARD (AGES 45-75) - COL ON CA SCREENING 1979 COLON MONITORING 1979 COLONOSCOPY - COLON CA SCREENING 1979 CT COLONOGRAPHY - COLON CA SCREENING 1979 Colorectal Cancer Screening 1979 FIT - COLON CA SCREENING 1979 FLEX SIG - COLON CA SCREENING 1979 LIPID TESTING 1979 HIV SCREENING 1994 HEPATITIS C SCREENING 07/21/1997 DTAP/TDAP/TD VACCINES (1 - Tdap) 1998 HEPATITIS B VACCINE (1 of 3 - 19+ 3-dose series) 1998 DEPRESSION SCREENING 11/17/2023 COVID-19 VACCINE (1 - 2023-2 5 season) 2024 INFLUENZA VACCINE (#1) 2024 ZOSTER VACCINE (1 of 2) 2029 HIB VACCINE Aged Out No longer eligi ble based on patient's age to complete this topic HPV VACCINE Aged Out No longer eligi ble based on patient's age to complete this topic MENINGOCOCCAL VACCINE Aged Out No chantel viktor eligible based on patient's age to complete this topic PNEUMOCOCCAL VACCINE Aged Out No long er eligible based on patient's age to complete this topic Care Teams Shopper'S Aide Relationship Specialty Start Date End Date Josh Cabral MD [address] [place] [address] PCP - General 10/07/22
--- OUTSIDE RECORDS SUMMARY | 2024-11-02 20:34 | XMS_ITS | Encounter Summary ---
Author Organization [facility] Address [address] [place] [address] Care Team Providers Care Business Administration Teacher Name Role Phone Josh Cabral MD Primary Care Provider Encounter Details Date Type Department Care Team (Late st Contact Info) Description 06/17/2019 9:25 AM CDT Lab [facility] Advanced Medicine 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 PERSONNEL INTERVIEWER Gender Identity Not on file Sexual Orientation Not on file documented as of this encounter Discharge Disposition Disposition Code Departure Means Destination Discharge to home or self care documented in this encounter Plan of Treatment Not on file documented as of this encounter Procedures Procedure Name Priority Date/Time Associated Diagnosis Comments HEPATIC FUNCTION PANEL Routine 06/17/2019 9:13 AM CDT Hepatic steatosis documented in this encounter Results * Hepatic function panel (06/17/2019 9:13 AM CDT) Bilirubin, total 0.4 0.1 - 1.2 mg/dL [facility] Bilirubin, direct <0.2 0.1 - 0.3 mg/dL [facility] Protein, pl 7.2 6.5 - 8.5 g/dL [facility] Albumin 4.7 3.5 - 5.0 g/dL [facility] Alk phos 60 40 - 130 Units/L [facility]] ALT 22 7 - 55 Units/L [facility] AST 38 10 - 50 Units/L [facility] Comment:Hemolyzed; result ma y be falsely elevated. Blood specimen (specimen) 06/17/2019 9:13 AM CDT 06/17/2019 9:30 AM CDT us Sandy Daugherty MD LAB BLOOD ORDERABLES Final Result [facility] [address] [facility] Department [place] [address] documented in this encounter Visit Diagnoses Diagnosis Hepatic steatosis Other chronic nonalcoholic liver disease documented in this encounter Care Teams Business Administration Teacher Relationship Specialty Start Date End Date Josh Cabral MD PCP - General 06/11/16 documented as of this encounter
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
--- OUTSIDE RECORDS SUMMARY | 2024-11-02 20:34 | XMS_ITS | Encounter Summary ---
Author Organization [facility] Address [address] [place] [address] Phone Care Team Providers Care Order To Delivery Supervisor Name Role Phone Josh Cabral MD Primary Care Provider [phone] Encounter Details Date Type Department Care Team (Late st Contact Info) Description 06/14/2019 Orders Only [facility] Gastroenterology 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 HYDROcodone-aceta minophen (NORCO) 7.5-325 mg per tablet TAKE 1-2 TABLETS BY MOUTH EVERY 4 TO 6 HOURS NEEDED FOR PAIN 0 03/15/2019 predniSONE (DELTASONE) 10 mg tablet 0 05/11/2019 10/21/2019 ondansetron (ZOFRAN) 8 mg tablet Take by mouth every 8 (eight) hours as needed 0 03/15/2019 10/21/2019 ketorolac (TORADOL) 10 mg tablet TAKE 1 TABLET BY MOUTH EVERY SIX HOURS 0 03/15/2019 10/21/2019 ibuprofen (ADVIL,MOTRIN) 800 mg tablet Take 800 mg by mouth every 6 hours 10/21/2019 added in this encounter Care Teams Order To Delivery Supervisor Relationship Specialty Start Date End Date Josh Cabral MD PCP - General 06/11/16 documented as of this encounter
--- OUTSIDE RECORDS SUMMARY | 2024-11-02 20:34 | XMS_ITS | Encounter Summary ---
Author Organization [facility] Address [address] [place] [address] Care Team Providers Care Supervisor Weaving Name Role Phone Josh Cabral MD Primary Care Provider [phone] Reason for Visit * Reason Comments Sleep Apnea AutoPAP Follow Up Encounter Details Date Type Department Care Team (Late st Contact Info) Description 10/21/2019 10:00 AM PR INTERN Office Visit [facility] [address] [place] [address] Angely Giraldo, FRUIT CANNER [address] [facility] [address] [place], [place] [id number] Obstructive sleep apnea (Primary Dx); Body mass index (BMI) of 29.0-29.9 in adult Social History Tobacco Use Types Packs/Day Years Used Date Smoking Tobacco: Never Alcohol Use Standard Drinks/Week Comments Yes 0 (1 standard drink = 0.6 oz pur e alcohol) Sex and Gender Information Value Date Recorded Sex Assigned at Not on file Legal Sex Male 1:09 AM PR INTERN Gender Identity Not on file Sexual Orientation Not on file documented as of this encounter Last Filed Vital Signs Vital Sign Reading Time Taken Comments Blood Pressure 116/76 10/21/2019 10:02 AM PR INTERN Pulse 74 10/21/2019 10:02 AM PR INTERN Temperature 36.9 ??C (98.4 ??F) 10/21/2019 10:[address] Respiratory Rate 15 10/21/2019 10:02 AM PR INTERN Oxygen Saturation 96% 10/21/2019 10:02 AM PR INTERN Inhaled Oxygen Concentration - - Weight 83.9 kg (185 lb) 10/21/2019 10:02 AM PR INTERN Height 170.2 cm (5' 7 ) 10/21/2019 10:02 AM PR INTERN Body Mass Index 28.98 10/21/2019 10:02 AM PR INTERN documented in this encounter Progress Notes * Angely Giraldo, FRUIT CANNER - 10/21/2019 10:00 AM CST Subjective/Objective Patient ID: Logan Soto is a 39 y.o. male. Chief Complaint Sleep Apnea and AutoPAP Follow Up HPI The patient returns the office today in follow-up for his sleep apnea. His originally diagnosed with sleep apnea January 18, 2015 with an apnea-hypopnea index of 11 and oxygen desaturations 91%. He is using APAP set from 4-20 cm water pressure with 93% use greater than 4 hours review of the last 60 nights. His average nightly uses 8 hours and 6 minutes. Good control of his apneas seen with an average AHI of 2.1 events per hour. Very good mask seal is noted with the median leak of 0 liters/minute. His APAP pressures range from 7.2 to maximum of 11 cm water pressure. He is benefitting from the useof his APAP machine. His comorbid conditions include arthritis, GERD, and BMI 29. The patient also b rought a download patient for his other APAP which showed that he is actually 100% compliant. Patient reports that his APAP machine has been making strange loud noises he is in need of a replacement machine. [place] Sleepiness Scale & Score (1-24): [place] Sleepiness Scale Sitting and reading: Would never [...] is not nervous/anxious and is not hyperactive. BP 116/76 (BP Location: Left arm, Patient Position: Sitting) Pulse 74 Temp 36.9 ??C (98.4 ??F) (Tympanic) Resp 15 Ht 170.2 cm (5' 7 ) Wt 83.9 kg (185 lb) SpO2 96% BMI 28.98 kg/m?? Physical Exam Vitals signs and nursing note reviewed. Constitutional: Appearance: Normal appearance. He is well-developed. He is not ill-appearing. HENT: Head: Normocephalic. Right Ear: External ear normal. Left Ear: External ear normal. Nose: Nose normal. No rhinorrhea. Mouth/Throat: Mouth: Mucous membranes are moist. Comments: Mallampati 3 Broad-based tongue Eyes: General: Right eye: No discharge. Left eye: No discharge. Conjunctiva/sclera: Conjunctivae normal. Pupils: Pupils are equal, round, and reactive to light. Neck: Musculoskeletal: Normal range of motion. No muscular tenderness. Trachea: No tracheal deviation. Cardiovascular: Rate and Rhythm: Normal rate and regular rhythm. Heart sounds: Normal heart sounds. No murmur. Pulmonary: Effort: Pulmonary effort is normal. Breath sounds: Normal breath sounds. No wheezing, rhonchi or rales. Abdominal: Palpations: Abdomen is soft. Musculoskeletal: Normal range of motion. Right lower leg: No edema. Left lower leg: No edema. Skin: General: Skin is warm and dry. Capillary Refill: Capillary refill takes less than 2 seconds. Findings: No rash. Neurological: Mental Status: He is alert and oriented to person, place, and time. Psychiatric: Mood and Affect: Mood normal. Behavior: Behavior normal. Thought Content: Thought content normal. Judgment: Judgment normal. Assessment/Plan Diagnoses and all orders for this visit: Obstructive sleep apnea (Primary) Assessment & Plan: Patient's machine is making strange noises. He will get a new air sense 10 APAP set from 6-15 cm ofwater pressure. He will strive to uses machine nightly for 8- 9 hours. Orders: - CPAP; Future Body mass index (BMI) of 29.0-29.9 in adult Assessment & Plan: He will try to practice good dietary habits eating more fresh vegetables, fruit and lean protein. He will try to get 45 minutes of activity daily to help promote weight loss. Orders: - CPAP; Future This note was dictated using voice recognition system errors in grocery associate may have occurred. INTERN documented in this encounter Miscellaneous Notes * Assessment & Plan Note - Angely Giraldo NP - 10/21/2019 10:38 AM PR INTERN Associated Problem(s): Body mass index (BMI) of 29.0-29.9 in adult He will try to practice good dietary habits eating more fresh vegetables, fruit and lean protein. He will try to get 45 minutes of activity daily to help promote weight loss. INTERN * Assessment & Plan Note - Angely Giraldo NP - 10/21/2019 10:37 AM PR INTERN Associated Problem(s): Obstructive sleep apnea Patient's machine is making strange noises. He will get a new air sense 10 APAP set from 6-15 cm ofwater pressure. He will strive to uses machine nightly for 8- 9 hours. INTERN documented in this encounter Plan of Treatment Not on file documented as of this encounter Visit Diagnoses Diagnosis Obstructive sleep apnea- Primary Obstructive sleep apnea (adult) (pediatric) Body mass index (BMI) of 29.0-29.9 in adult documented in this encounter Discontinued Medications Medication Sig Discontinue Reason Start Date End Da te ibuprofen (ADVIL,MOTRIN) 800 mg tablet 800 mg. Therapy completed 01/10/2015 10/21/2019 ibuprofen (ADVIL,MOTRIN) 800 mg tablet Take 800 mg by mouth every 6 hours Duplicate order 10/21/2019 ketorolac (TORADOL) 10 mg tablet TAKE 1 TABLET BY MOUTH EVERY SIX HOURS Therapy completed 03/15/2019 10/21/2019 ondansetron (ZOFRAN) 8 mg tablet Take by mouth every 8 (eight) hours as needed Therapy completed 03/15/2019 10/21/2019 predniSONE (DELTASONE) 10 mg tablet Therapy completed 05/11/2019 10/21/2019 traMADol (ULTRAM) 50 mg tablet 50 mg. Therapy completed 05/02/2016 10/21/2019 documented as of this encounter Care Teams Supervisor Weaving Relationship Specialty Start Date End Date Josh Cabral MD PCP - General 06/11/16 documented as of this encounter
--- OUTSIDE RECORDS SUMMARY | 2024-11-02 20:35 | XMS_ITS | Encounter Summary ---
Author Organization [facility] Address [address] [place] [address] Care Team Providers Care Rotogravure Press Operator Name Role Phone Josh Cabral MD Primary Care Provider Encounter Details Date Type Department Care Team (Late st Contact Info) Description 12/08/2018 1:50 PM SIGNALER Lab [facility] [address] [place] [address] Sandy Daugherty MD [address] [place] [address] Hepatic steatosis Discharge Disposition: Discharge to home or self care Social History Tobacco Use Types Packs/Day Years Used Date Smoking Tobacco: Never Alcohol Use Standard Drinks/Week Comments Yes 0 (1 standard drink = 0.6 oz pur e alcohol) Sex and Gender Information Value Date Recorded Sex Assigned at Not on file Legal Sex Male 1:09 AM SIGNALER Gender Identity Not on file Sexual Orientation Not on file documented as of this encounter Discharge Disposition Disposition Code Departure Means Destination Discharge to home or self care documented in this encounter Plan of Treatment Not on file documented as of this encounter Procedures Procedure Name Priority Date/Time Associated Diagnosis Comments HEPATITIS A ANTIBODY,IGG Routine 12/08/2018 1:47 PM SIGNALER Hepatic steatosis IRON PROFILE W/ IBC Routine 12/08/2018 1 :47 PM SIGNALER Hepatic steatosis HEPATITIS C ANTIBODY Routine 12/08/2018 1:47 PM SIGNALER Hepatic steatosis CERULOPLASMIN Routine 12/08/2018 1:47 PM SIGNALER Hepatic steatosis HEPATITIS B CORE ANTIBODY, TOTAL Routine 12/08/2018 1:47 PM SIGNALER Hepatic steatosis HEPATITIS B SURFACE ANTIBODY (IMMUNE STATUS) Routine 12/08/2018 1:47 PM SIGNALER Hepatic steatosis HEPATITIS B SURFACE ANTIGEN Routine 12/08/2018 1:47 PM SIGNALER Hepatic steatosis HEMOGLOBIN A1C Routine 12/08/2018 1:47 PM SIGNALER Hepatic steatosis GAMMA GT Routine 12/08/2018 1:47 PM SIGNALER Hepatic steatosis FERRITIN Routine 12/08/2018 1:47 PM SIGNALER Hepatic steatosis HEPATIC FUNCTION PANEL Routine 9 1:47 PM SIGNALER Hepatic steatosis documented in this encounter Results * Ferritin (12/08/2018 1:47 PM SIGNALER) Ferritin 179 30 - 400 ng/mL [facility] Blood specimen (specimen) 12/08/2018 1:47 PM SIGNALER 12/08/2018 3:57 PM SIGNALER Narrative [facility] - 12/08/2018 4:39 PM SIGNALER us Sandy Daugherty MD LAB BLOOD ORDERABLES Final Result [facility] Department [place] [address] * Ceruloplasmin (12/08/2018 1:47 PM SIGNALER) Ceruloplasmin 18.5 15.0 - 30.0 mg/dL [facility] Blood specimen (specimen) 12/08/2018 1:47 PM SIGNALER 12/08/2018 3:57 PM SIGNALER Narrative [facility] - 12/08/2018 4:34 PM SIGNALER Sandy Daugherty MD LAB BLOOD ORDERABLES Final Result Performing Organization Address [facility] Co de Phone Number [facility] [place] [address] * (ABNORMAL) Hepatic function panel (12/08/2018 1:47 PM SIGNALER) Bilirubin, total 0.4 0.1 - 1.2 mg/dL [facility] Bilirubin, direct <0.2 0.1 - 0.3 mg/dL [facility] Protein, pl 7.7 6.5 - 8.5 g/dL [facility] Albumin 4.9 3.5 - 5.0 g/dL [facility] Alk phos 63 40 - 130 Units/L [facility] ALT 43 7 - 55 Units/L [facility] AST 101(H) 10 - 50 Units/L [facility] Blood specimen (specimen) 12/08/2018 1:47 PM SIGNALER 12/08/2018 3:57 PM SIGNALER Narrative [facility] - 12/08/2018 4:35 PM SIGNALER Sandy Daugherty MD LAB BLOOD ORDERABLES Final Result Performing Organization Address [facility] Co de Phone Number [facility] Department [place] [address] * Iron profile w/ IBC (12/08/2018 1:47 PM SIGNALER) Iron 90 50 - 150 mcg/dL [facility] TIBC 293 250 - 400 mcg/dL [facility] Transferrin saturation 31 20 - 50 % [facility] Blood specimen (specimen) 12/08/2018 1:47 PM SIGNALER 12/08/2018 3:57 PM SIGNALER Narrative [facility] - 12/08/2018 4:35 PM SIGNALER Sandy Daugherty MD LAB BLOOD ORDERABLES Final Result Performing Organization Address [facility] Co de Phone Number [facility] [place] [place] [address] * Hepatitis C antibody (12/08/2018 1:47 PM SIGNALER) Pathologist [facility] Hep C Ab Nonreactive Nonreactive [facility] Comment: Interpretive Data Positive results should be confirmed by a molecular method. If positive, a second separately collected sample should be submitted for Hepatitis C Virus (HCV) RNA Detection and Quantitation by Real-Time Reverse Cleaning And Maintenance Worker-PCR (RT-PCR). Current interpretive data was last revised on 2016. Blood specimen (specimen) 12/08/2018 1:47 PM SIGNALER 12/08/2018 3:57 PM SIGNALER Narrative [facility] - 12/09/2018 9:51 AM SIGNALER Sandy Daugherty MD LAB MICROBIO LOGY - GENERAL ORDERABLES Edited Result - Final Performing Organization Address [facility] Co de Phone Number [facility] [place] [address] * Hepatitis B surface antigen (12/08/2018 1:47 PM SIGNALER) Pathologist [facility] HepBsAg Nonreactive Nonreactive [facility] Blood specimen (specimen) 12/08/2018 1:47 PM SIGNALER 12/08/2018 3:57 PM SIGNALER Narrative [facility] - 12/09/2018 9:51 AM SIGNALER Sandy Daugherty MD LAB MICROBIO LOGY - GENERAL ORDERABLES Edited Result - Final Performing Organization Address City/[facility]/ZIP Co de Phone Number [facility] [place] [address] * (ABNORMAL) Hepatitis B surface antibody (12/08/2018 1:47 PM SIGNALER) HBsAb (immune status) Reactive [facility] Comment: Interpretive Data A Negative Result indicates HBsAb of less than 10mIU/mL; a Positive Result indicates HBsAb of greater than or equal to 10mIU/mL. If qualitative result is Positive, HBsAb Quantitation will be reported. Assay performance characteristics have not been established as an aid in determining susceptibility to HBV infection prior to or following vaccination in infants, or children. For monitoring serum HBsAb levels during hepatitis B immunoglobulin (HBIG) therapy in transplant recipients, please refer to institutional HBIG protocol for desirable HBsAb levels. Current interpretive data was last revised on 2016. HBsAb (immune status) index 206.0(H) 0.0 - 10.0 mIUnits/m L [facility] Blood specimen (specimen) 12/08/2018 1:47 PM SIGNALER 12/08/2018 3:57 PM SIGNALER Narrative [facility] - 12/09/2018 9:51 AM SIGNALER Sandy Daugherty MD LAB MICROBIOLOGY - G ENERAL ORDERABLES Final Result Performing Organization Address City/[facility]/ZIP Co de Phone Number [facility] [place] [address] * Hepatitis B core antibody, total (12/08/2018 1:47 PM SIGNALER) Pathologist [facility] Hep B core IgG/IgM Nonreactive Nonreactive [facility] Blood specimen (specimen) 12/08/2018 1:47 PM SIGNALER 12/08/2018 3:57 PM SIGNALER Narrative [facility] - 12/09/2018 9:51 AM SIGNALER Sandy Daugherty MD LAB MICROBIO LOGY - GENERAL ORDERABLES Edited Result - Final [facility] [place] [address] * (ABNORMAL) Hepatitis A antibody, IgG (12/08/2018 1:47 PM SIGNALER) Pathologist [facility] Hep A IgG Reactive(A ) Nonreactive [facility] Blood specimen (specimen) 12/08/2018 1:47 PM SIGNALER 12/08/2018 3:57 PM SIGNALER Narrative [facility] - 12/09/2018 9:45 AM SIGNALER Sandy Daugherty MD LAB BLOOD ORDERABLES Final Result Performing Organization Address [facility] Co de Phone Number [facility] [place] [address] * Hemoglobin A1c (12/08/2018 1:47 PM SIGNALER) [facility] Hgb A1C 4.7 4.0 - 5.6 % [facility] Estimated Average Glucose 88 mg/dL [facility] Comment: The ADA recommends reporting an estimated Average Glucose (eAG) with all Hemoglobin A1c results using the equation derived from a study of 507 normal and diabetic adults. ??Minority populations were underrepresented and children were not included. ?? (Diabetes Care 31:8209-8689, 2008). ??The eAG is not equivalent to a fasting glucose. Blood specimen (specimen) 12/08/2018 1:47 PM SIGNALER 12/08/2018 3:57 PM SIGNALER Narrative [facility] - 12/08/2018 4:21 PM SIGNALER Sandy Daugherty MD LAB BLOOD ORDERABLES Final Result Performing Organization Address [facility]/ZIP Co de Phone Number [facility] [place] [address] * Gamma GT (12/08/2018 1:47 PM SIGNALER) Pathologist [facility] GGT 27 10 - 50 Units/L [facility] Blood specimen (specimen) 12/08/2018 1:47 PM SIGNALER 12/08/2018 3:57 PM SIGNALER Narrative [facility] - 12/08/2018 4:35 PM SIGNALER us Sandy Daugherty MD LAB BLOOD ORDERABLES Final Result [facility] Department [place] [address] documented in this encounter Visit Diagnoses Diagnosis Hepatic steatosis Other chronic nonalcoholic liver disease documented in this encounter Care Teams Rotogravure Press Operator Relationship Specialty Start Date End Date Josh Cabral MD PCP - General 06/11/16 documented as of this encounter
--- OUTSIDE RECORDS SUMMARY | 2024-11-02 20:35 | XMS_ITS | Continuity of Care Document ---
Author Organization [facility] Address [address] [place] [address] Phone Care Team Providers Care Heading And Priming Tool Setter Name Role Phone Gigi Mckeon MD Unavailable Unavailable Allergies, Adverse Reactions, Alerts Substance Reaction Status Criticality Sulfa (Sulfonamide Antibiotics) Active No Information Medications Medication Instructions Dosage Effective Dates (start - stop) Status Comments omeprazole 40 mg capsule,delayed release take 1 capsule by oral route every day before a meal 40 MG - No Longer Active Procedures Procedure Date X-ray exam shoulder minimum 2 views Independent Medical Examination JD Pre Payment Advance Directives Directive Yes / No Effective Date File Name No Information Encounters Encounter Description Practice Location Reason(s) For Visit Diagnoses Date Provider Providers Copied on Encounter Independent Medical Examination [facility], [address], [id number], [phone] [facility] right shoulder (chief complaint) Pain in right shoulder 0 9 Mike Yu. [address] [place] [address], [id number] , [place]. tel: [phone] [facility], [address] [place] [address], [id number], [place] tel:[phone] [facility] No Information 8 Mike Yu. [address] [place] [address], [id number] , [place]. tel: [phone] Family History Family Member Type Diagnosis Age At Onset No Information Payers Payer name Insurance type Covered constitution party ID Tello potts(s) [employer] [id number] Social History Type Description Quantity Date Captured Comments Alcohol Use Details Caffeine Use Details Unknown Tobacco Use Status No Information Smoking Status Unknown if ever smoked Non-Smoking Tobacco Use Details : No Details Available : No Details Available Sex Male Vital Signs Date / Time: Height Weight BMI Pulse Rate Blood Pressure Temperature Respiratory Rate Body Surface Area Head Circumference Head Circ. Percentile Wt./Esequiel. Percentile BMI percentile Pulse Ox Inhaled Ox 11:25 AM 67.00 in 81.193 kg (179.00 lbs) 28.0 4 kg/m eter (2) Chief Complaint And Reason For Visit From encounter dated '01/06/2019 11:20'. right shoulder (chief complaint). Description: Logan presents to the office for right shoulder complaints. Reason For Referral Reason For Referral No Information Plan Of Treatment Date Type Action Status Referral Ordered: X-ray exam shoulder minimum 2 views RT ordered History Of Present Illness Encounter Date Complaint History Of Prese nt Illness right shoulder Logan presents to the office for right shoulder complaints. Functional Status Date Functional Assessmen t No Information Instructions Date Instruction Additional Infor mation No Information Assessments Type Assessment Date assessment Pain in right shoulder 19 Patient Care Teams Name Effective Dates (start - stop) Status Members No Information
--- OUTSIDE RECORDS SUMMARY | 2024-11-02 20:35 | XMS_ITS | Encounter Summary ---
Author Organization [facility] Facility Care Team Providers Care Warehouse Supervisor 3Rd Shift Name Role Phone Josh Cabral MD Primary Care Provider [phone] Encounter Details Date Type Department Care Team (Latest Contact Info) Description 01/18/2015 7:[address] SUPERVISOR - 01/18/2015 11:[address] SUPERVISOR Hospital [facility] Saud Hayes MD [address] [address] Angely Giraldo NP [address] [address] Other sleep disturbances; Other dyspnea and respiratory abnormality; Esophageal reflux Social History Tobacco Use Types Packs/Day Years Used Date Smoking Tobacco: Never Assessed Sex and Gender Information Value Date Recorded Sex Assigned at Not on file Legal Sex Male 1:[address] SUPERVISOR Gender Identity Not on file Sexual Orientation Not on file documented as of this encounter Medications at Time of Discharge multivitamin capsule 0 0 01/05/2015 ibuprofen (ADVIL,MOTRIN) 800 mg tablet 800 mg. 0 0 01/10/2015 10/21/2019 omeprazole (PriLOSEC) 20 mg capsule 20 mg. 0 0 01/10/2015 12/08/2018 documented as of this encounter Plan of Treatment Not on file documented as of this encounter Procedures Procedure Name Priority Date/Time Associated Diagnosis Comments PSG (SIMPLE) Routine 01/18/2015 12:[address] SUPERVISOR documented in this encounter Results * PSG (SIMPLE) (01/18/2015 12:[address] SUPERVISOR) 01/18/2015 Narrative HISTORICAL RESULTS - 02/01/2015 3:20 PM CDT Patient: ??NEW SOTO Account: ??[id number] ? Room No: : ?1979 ? Proc. Date: ?01/18/2015 Attending: ? SAUD HAYES M.D. Admit Date: 01/18/2015 Dictating: ? SAUD HAYES M.D. Disch. Date: 01/18/2015 ? Patient Type: ??ANC Identifying Data: ??This is a 34-year-old, 80-ajad-lugr, 169-pound male. ??BMI is 26. ??The patient is seen in followup of prior testing. ??Ten years ago, the patient underwent testing because of significant problems of nonrestorative sleep. ??At that time, the patient had rotating shifts as well as was enrolled in school. ??No set sleep-awake pattern was present. ??The patient had undergone sleep testing with findings of an apnea-hypopnea index of 6. ??The patient was not noted to have desaturation. ??Multiple sleep latency testing demonstrated a mean sleep latency of 8.6 minutes as well as REM latency in 4 of 4 naps. ??The patient has changed his schedule. ??The patient has stated no problems with fatigue or somnolence. ??Cross Hill score is 0. ??Knee and hip pain are present. The patient has used ibuprofen, and omeprazole has been used for acid reflux. The patient is referred for diagnostic purposes. The patient is studied with multiple-channel polysomnography to include EEG sleep stage recording, cardiorespiratory monitoring, monitoring for myoclonus, as well as for videotaping. ??A full-night polysomnography was followed by multiple sleep latency testing. Baseline Testing: ??The baseline testing was completed over 8 hours and 13 minutes. ??Seven hours and 16 minutes of sleep time was present. ??A 4.5-minute sleep latency was followed by a REM latency of 2 hours and 19 minutes. ??Sleep efficiency was 88%. ??Three hours and 16 minutes of supine sleep and 4 hours of sleep on the side were seen. ??For the baseline testing, 9% of sleep was stage 1, 59.9% was stage 2. ??Delta sleep was not seen. ??REM sleep was 19.6%. Respiratory data: ??The patient demonstrated moderate snores, especially while in the supine position. ??Light or no snores were present while on the side. The patient was noted to have significant sleep disruption secondary to snoring while in the supine position. ??The respiratory disturbance index while supine was 37. ??While on the side, the respiratory disturbance index was 3. Apnea-hypopnea index as calculated by apneas as well as 4% drops in saturation for obstructive hypopneas was 11. ??Seventeen obstructive hypopneas were scored. During this session, 7 obstructive apneas were present, 6 mixed apneas, and 52 central apneas. Lowest desaturation encountered was 91%. Average heart rate was 62. ??Maximum heart rate was 100. ??Minimum heart rate was. ??A sinus arrhythmia was present. ??Computer averaging was employed. Six leg movements were scored only. Multiple sleep latency testing was completed following a full night of polysomnography. ??Five naps were completed. ??On nap #1, the patient did not demonstrate a sleep onset. ??On nap #2, an 18-minute sleep latency occurred. ??No sleep onset REM periods were identified. ??On nap #3, no sleep was identified. On nap #4, no sleep was identified. ??On nap #5, an 11-minute sleep latency occurred without onset of REM sleep. ??A mean sleep latency of 17.8 minutes was present. Diagnostic Impressions: ??1. ?Moderate snoring was present while supine. ??The respiratory ? disturbance index was elevated at 37.35 while supine and on the side was ? 3.49. ??Avoidance of the supine position would be recommended. ? Sleep-disordered breathing is present while supine. ??2. ?Multiple sleep latency testing was completed. ??A mean sleep latency ? of 17.8 minutes without onset of REM periods is present. ??A mean sleep ? latency of 17.8 minutes would be considered within normal limits. ??No ? evidence of narcolepsy was present. ??3. ?Clinical correlation is suggested. SAUD HAYES M.D. OS/mt Job #: ??[id number] DD: ??01/23/2015 15:17 TD: ??01/23/2015 18:15 Electronically Authenticated by: Saud Hayes MD On 02/01/2015 02:11 PM CDT us Historical Provider MD SLEEP [facility]ENTER ORDERABLES F inal Result HISTORICAL RESULTS documented in this encounter Visit Diagnoses Diagnosis Other sleep disturbances Other dyspnea and respiratory abnormality Esophageal reflux documented in this encounter Care Teams Warehouse Supervisor 3Rd Shift Relationship Specialty Start Date End Date Josh Cabral MD PCP - General 01/10/15 06/10/16 documented as of this encounter
--- OUTSIDE RECORDS SUMMARY | 2024-11-02 20:35 | XMS_ITS | Encounter Summary ---
Author Organization [facility] Medical [facility] Address [address] [place] [address] Care Team Providers Care Sales Special Agent Name Role Phone Josh Cabral MD Primary Care Provider [phone] Reason for Visit * Reason Comments Sleep Apnea AutoPAP Follow Up Encounter Details Date Type Department Care Team (Late st Contact Info) Description 04/09/2018 2:30 PM CDT Office Visit [facility] [address] [phone] Angely Giraldo, DEVOPS ARCHITECT [address] [facility] [address] [place] [address] Obstructive sleep apnea (Primary Dx) Social History Tobacco Use Types Packs/Day Years Used Date Smoking Tobacco: Never Alcohol Use Standard Drinks/Week Comments Yes 0 (1 standard drink = 0.6 oz pur e alcohol) Sex and Gender Information Value Date Recorded Sex Assigned at Not on file 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 Gender Identity Not on file Sexual Orientation Not on file documented as of this encounter Last Filed Vital Signs Vital Sign Reading Time Taken Comments Blood Pressure 120/80 04/09/2018 2:20 PM CDT Pulse 101 04/09/2018 2:20 PM CDT Temperature 36.5 ??C (97.7 ??F) 04/09/2018 2:20 PM CD T Respiratory Rate 18 04/09/2018 2:20 PM CDT Oxygen Saturation 96% 04/09/2018 2:20 PM CDT Inhaled Oxygen Concentration - - Weight 84.4 kg (186 lb) 04/09/2018 2:20 PM CDT Height 170.2 cm (5' 7 ) 04/09/2018 2:20 PM CDT Body Mass Index 29.13 04/09/2018 2:20 PM CDT documented in this encounter Progress Notes * Angely Giraldo, DEVOPS ARCHITECT - 04/09/2018 2:30 PM CDT Subjective/Objective Patient ID: Logan Soto is a 37 y.o. male. Chief Complaint Sleep Apnea and AutoPAP Follow Up HPI The patient returns the office today in follow-up for his sleep disorders. His originally diagnosedwith sleep apnea on January 18, 2015 with an apnea-hypopnea index of 11. He has been using an APAP with settings of 4-20 cm of water pressure with excellent compliance with 97% use greater 4 hr in review of the last 60 nights. His average nightly uses 7 hr and 38 min. Good control of his apneas is seen with an average AHI of 2.8 events per hour. A good mask seal is noted with the median leak of 0.1 liters/minute. His APAP pressures ranging from 6.9 to maximum of 10.5 cm water pressure. He is benefitting from the use of his APAP. The patient is in need of change of his DME providers as he has been with [facility] however they no longer take his insurance. The patient denies any changes in his health history. He did have rotator cuff repair to his right shoulder year ago. Review of Systems Constitutional: Negative for appetite [...] Genitourinary: Negative for frequency. Musculoskeletal: Positive for arthralgias (Right shoulder). Negative for back pain, gait problem and neck pain. Skin: Negative for rash. Neurological: Negative for seizures, syncope and headaches. Hematological: Does not bruise/bleed easily. Psychiatric/Behavioral: Negative for agitation and sleep disturbance. The patient is not nervous/anxious and is not hyperactive. Physical Exam Constitutional: He is oriented to person, place, and time. He appears well- developed and well-nourished. No distress. HENT: Head: Normocephalic. Eyes: Pupils are equal, round, and reactive to light. Neck: Normal range of motion. No JVD present. No tracheal deviation present. Cardiovascular: Normal rate, regular rhythm and normal heart sounds. No murmur heard. Pulmonary/Chest: Effort normal and breath sounds normal. No respiratory distress. He has no wheezes. Abdominal: Soft. Musculoskeletal: Normal range of motion. He exhibits no edema or deformity. Neurological: He is alert and oriented to person, place, and time. Skin: Skin is warm and dry. Capillary refill takes less than 2 seconds. No rash noted. Psychiatric: He has a normal mood and affect. His behavior is normal. Judgment and thought content normal. Nursing note and vitals reviewed. Assessment/Plan Diagnoses and all orders for this visit: Obstructive sleep apnea (Primary) Assessment & Plan: He will wear his APAP set from 4-20 cm water pressure nightly for 7-9 hours. He is using Airfit P 10 nasal pillows with an excellent mask fit. Orders: - PAP Machine Replacement Supplies documented in this encounter Miscellaneous Notes * Assessment & Plan Note - Angely Giraldo NP - 04/09/2018 2:45 PM CDT Associated Problem(s): Obstructive sleep apnea He will wear his APAP set from 4-20 cm water pressure nightly for 7-9 hours. He is using Airfit P 10 nasal pillows with an excellent mask fit. documented in this encounter Plan of Treatment Not on file documented as of this encounter Visit Diagnoses Diagnosis Obstructive sleep apnea- Primary Obstructive sleep apnea (adult) (pediatric) documented in this encounter Orders General Supply Count Last Ordered Date First Or dered Date PAP MACHINE REPLACEMENT SUPPLIES 1 04/09/20 18 documented in this encounter Care Teams Sales Special Agent Relationship Specialty Start Date End Date Josh Cabral MD PCP - General 06/11/16 documented as of this encounter
--- OUTSIDE RECORDS SUMMARY | 2024-11-02 20:35 | XMS_ITS | Encounter Summary ---
Author Organization [facility] Medical [facility] Address [address] [facility] [address] [place] [address] Care Team Providers Care Electrical Engineering Technician Name Role Phone Josh Cabral MD Primary Care Provider + [phone] Reason for Visit * Reason Onset Date Comments Request For Order(s) 03/10/2018 Encounter Details Date Type Department Care Team (Late st Contact Info) Description 03/10/2018 Telephone [facility] for Sleep Medicine [address] [phone] Angely Giraldo NP [address] [facility] [address] [place] [address] Request For Order(s) Social History Tobacco Use Types Packs/Day Years Used Date Smoking Tobacco: Never Alcohol Use Standard Drinks/Week Comments Yes 0 (1 standard drink = 0.6 oz pur e alcohol) Sex and Gender Information Value Date Recorded Sex Assigned at Not on file 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 [facility] no longer takes is insurance. He needs an order for supplies sentto [facility]. documented in this encounter Plan of Treatment Not on file documented as of this encounter Visit Diagnoses Diagnosis Obstructive sleep apnea- Primary Obstructive sleep apnea (adult) (pediatric) documented in this encounter Orders General Supply Count Last Ordered Date First Or dered Date PAP MACHINE REPLACEMENT SUPPLIES 1 03/10/20 18 documented in this encounter Care Teams Electrical Engineering Technician Relationship Specialty Start Date End Date Josh Cabral MD PCP - General 06/11/16 documented as of this encounter
--- OUTSIDE RECORDS SUMMARY | 2024-11-02 20:35 | XMS_ITS | Encounter Summary ---
Author Organization [facility] Address [address] [place] [address] Phone Care Team Providers Care Cementer Hand Name Role Phone Josh Cabral MD Primary Care Provider [phone] Encounter Details Date Type Department Care Team (Late st Contact Info) Description 03/01/2019 Telephone [facility] Gastroenterology [address] [place] [address] 8th [place] [address] [place] [phone] Antonette Bueno Social History Tobacco Use Types Packs/Day Years Used Date Smoking Tobacco: Never Alcohol Use Standard Drinks/Week Comments Yes 0 (1 standard drink = 0.6 oz pur e alcohol) Sex and Gender Information Value Date Recorded Sex Assigned at Not on file Legal 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 He is planning on being out of town most of May and prefers to schedule an appt in june. [facility] I discussed location as this is different than his last appt. I am also mailing out an appt reminder and campus map. ------ Message from Antonette Bueno sent at 12/14/2018 9:14 AM MUSIC PROMOTER ----- Regarding: MAY [place] ROV Contact pt once the May template for JF is available. Pt prefers [facility] ----- Message ----- From: La Spivey Sent: 12/08/2018 1:34 PM To: Antonette Bueno Pt needs 6mth fu with miguelina and vanna. Schedule not avail. documented in this encounter Plan of Treatment Not on file documented as of this encounter Visit Diagnoses Not on filedocumented in this encounter Care Teams Cementer Hand Relationship Specialty Start Date End Date Josh Cabral MD PCP - General 06/11/16 documented as of this encounter
--- OUTSIDE RECORDS SUMMARY | 2024-11-02 20:35 | XMS_ITS | Encounter Summary ---
Author Organization [facility] Facility Care Team Providers Care Workers' Compensation Hearings Officer Name Role Phone Unavailable Primary Care Provider Unavailabl e Encounter Details Date Type Department Care Team (Late st Contact Info) Description 10/04/2013 - 10/04/2013 11:59 PM [employer]CIAL INTERNS[employer] Hospital Encounter [facility] Pam Camejo MD [address] [place] [address] Pain in joint, pelvic region and thigh Social History Tobacco Use Types Packs/Day Years Used Date Smoking Tobacco: Never Assessed Sex and Gender Information Value Date Recorded Sex Assigned at Not on file 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 Gender Identity Not on file Sexual Orientation Not on file documented as of this encounter Plan of Treatment Not on file documented as of this encounter Procedures Procedure Name Priority Date/Time Associated Diagnosis Comments XR HIP (RADLINK) 1V Routine 10/04/2013 3 :44 PM COMMERCIAL INTERNSHIP XR PELVIS 3 OR MORE VIEWS Routine 10/04/2013 3:44 PM COMMERCIAL INTERNS[employer]IP documented in this encounter Results * XR Pelvis 3+ View (10/04/2013 3:44 PM [employer]CIAL INTER[employer]) Anatomical Region Laterality Modality Pelvis, Body N/A Radiographic Rosaura ging 10/04/2013 3:44 PM COMMERCIAL INTERNS[employer]IP Narrative 10/04/2013 4:02 PM [employer] INTER[employer] ARTI NARVAEZ M.D. FINAL REPORT ACC# ??Date Time ??Exam [id number] Oct 04, 2013 15:44:00 [id number] Hip Unilateral 1 view R [id number] Oct 04, 2013 15:44:00 [id number] Pelvis Complt min. 3 views EXAMINATION: ? . Pelvis minimum 3 views. 2. Right hip, one view. HISTORY: ??Hip pain FINDINGS: ??Three view examination of the pelvis includes a Roper and right-sided false profile projection. A frog-leg lateral examination of the right hip is also performed. There are no prior studies for comparison. There is mild asphericity of both femoral heads with deficient anterior femoral head-neck junctions bilaterally. The hip joint spaces are normal and symmetric. There is mild bilateral acetabular retroversion. No fracture is present. IMPRESSION: ?? 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 Requested By: PAM BROWNE M.D. Dictated By: ?? ARTI NARVAEZ M.D. ??on Oct 04 2013 ??4:02P This document has been electronically signed by: ARTI NARVAEZ M.D. on Oct 04 2013 ??4:02P Procedure Note Provider, MD Ran - 03/18/2017 ARTI NARVAEZ M.D. FINAL REPORT ACC# Date Time Exam [id number] Oct 04, 2013 15:44:00 [id number] Hip Unilateral 1 view R [id number] Oct 04, 2013 15:44:00 [id number] Pelvis Complt min. 3 views EXAMINATION: . Pelvis minimum 3 views. 2. Right hip, one view. HISTORY: Hip pain FINDINGS: Three view examination of the pelvis includes a Roper and right-sided false profile projection. A frog-leg lateral examination of the right hip is also performed. There are no prior studies for comparison. There is mild asphericity of both femoral heads with deficient anterior femoral head-neck junctions bilaterally. The hip joint spaces are normal and symmetric. There is mild bilateral acetabular retroversion. No fracture is present. 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 Requested By: PAM BROWNE M.D. Dictated By: ARTI NARVAEZ M.D. on Oct 04 2013 4:02P This document has been electronically signed by: ARTI NARVAEZ M.D. on Oct 04 2013 4:02P us Historical Provider IMG XR PROCEDURES Final R esult * XR Hip (Radlink) 1 View (10/04/2013 3:44 PM [employer]CIAL [employer]NS[employer]) Anatomical Region Laterality Modality Lower Extremities, Hip, Pelvis N/A R adiographic Imaging 10/04/2013 3:44 PM [employer] Narrative 10/04/2013 4:02 PM [employer]CIAL INTERNS[employer] ARTI NARVAEZ M.D. FINAL REPORT ACC# ??Date Time ??Exam [id number] Oct 04, 2013 15:44:00 [id number] Hip Unilateral 1 view R [id number] Oct 04, 2013 15:44:00 [id number] Pelvis Complt min. 3 views EXAMINATION: ? . Pelvis minimum 3 views. 2. Right hip, one view. HISTORY: ??Hip pain FINDINGS: ??Three view examination of the pelvis includes a Roper and right-sided false profile projection. A frog-leg lateral examination of the right hip is also performed. There are no prior studies for comparison. There is mild asphericity of both femoral heads with deficient anterior femoral head-neck junctions bilaterally. The hip joint spaces are normal and symmetric. There is mild bilateral acetabular retroversion. No fracture is present. IMPRESSION: ?? 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 Requested By: PAM BROWNE M.D. Dictated By: ?? ARTI NARVAEZ M.D. ??on Oct 04 2013 ??4:02P This document has been electronically signed by: ARTI NARVAEZ M.D. on Oct 04 2013 ??4:02P Procedure Note Provider, Ran, - 03/18/2017 ARTI NARVAEZ M.D. FINAL REPORT ACC# Date Time Exam [id number] Oct 04, 2013 15:44:00 [id number] Hip Unilateral 1 view R [id number] Oct 04, 2013 15:44:00 [id number] Pelvis Complt min. 3 views EXAMINATION: . Pelvis minimum 3 views. 2. Right hip, one view. HISTORY: Hip pain FINDINGS: Three view examination of the pelvis includes a Roper and right-sided false profile projection. A frog-leg lateral examination of the right hip is also performed. There are no prior studies for comparison. There is mild asphericity of both femoral heads with deficient anterior femoral head-neck junctions bilaterally. The hip joint spaces are normal and symmetric. There is mild bilateral acetabular retroversion. No fracture is present. 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 Requested By: PAM BROWNE M.D. Dictated By: ARTI NARVAEZ M.D. on Oct 04 2013 4:02P This document has been electronically signed by: ARTI NARVAEZ M.D. on Oct 04 2013 4:02P us Historical Provider MD MORA XR PROCEDURES Final R esult documented in this encounter Visit Diagnoses Diagnosis Pain in joint, pelvic region and thigh documented in this encounter
--- OUTSIDE RECORDS SUMMARY | 2024-11-02 20:35 | XMS_ITS | Encounter Summary ---
Author Organization [facility] Address [address] [place] [address] Phone Care Team Providers Care Envelope Cutter Name Role Phone Josh Cabral MD Primary Care Provider [phone] Encounter Details Date Type Department Care Team (Late st Contact Info) Description 01/12/2019 Orders Only [facility] [address] [facility] 8th [place] [address] [place] [address] Sandy Daugherty MD [address] [place] [address] Social History Tobacco Use Types Packs/Day Years Used Date Smoking Tobacco: Never Alcohol Use Standard Drinks/Week Comments Yes 0 (1 standard drink = 0.6 oz pur e alcohol) Sex and Gender Information Value Date Recorded Sex Assigned at Not on file 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 30 capsule 11 01/12/2019 documented in this encounter Progress Notes * Valerie Jaimes LPN - 01/12/2019 10:29 AM CST Plan does not cover esomeprazole will switch to omeprazole 40 mg OD IGERATOR CRATER documented in this encounter Plan of Treatment Not on file documented as of this encounter Visit Diagnoses Not on filedocumented in this encounter Discontinued Medications Medication Sig Discontinue Reason Start Date End Da te esomeprazole DR (NexIUM) 40 mg capsuleIndications:Treat ment of Non-Bleeding Gastric Disorder Take 1 capsule (40 mg total) by mouth daily before breakfast. Other 12/08/2018 01/12/2019 documented as of this encounter Care Teams Envelope Cutter Relationship Specialty Start Date End Date Josh Cabral MD PCP - General 06/11/16 documented as of this encounter
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
--- OUTSIDE RECORDS SUMMARY | 2024-11-02 20:49 | XMS_ITS | Continuity of Care Document ---
Author Name [facility] Organization [facility] Care Team Providers Care Unpaid Intern Name Role Phone [facility] Unavailable Unavailable Problems Combined list of problems from [facility] and [facility] facilities. It does not include entries that were removed or entered in error. Problem Status Onset Date Problem Type Date of Resolution Comments Source tinnitus Active Condition ALL TEST RESULTS ARE WNL, ALTHOUGH WHEN COMPARED TO A BASELINE TAKEN SEVERAL YEARS AGO, THERE IS A NOTCH FORMING AT 4K Hz THAT CAN BE ATTRIBUTED TO NOISE EXPOSURE. PT SHOULD MONITOR HEARING EVERY 18-[address] [facility] Gastroesophageal reflux disease Active Condition [facility] Hepatitis Active Condition [facility] Hyperlipidemia Active Condition Jul 192004 Entered By: JOAQUIN ABDI Comment: possible [facility] Low Back Pain Active Condition [facility] Narcolepsy Active Condition Aug 01 Entered By: UMAIR FLOOD Comment: split night polysomnogram , Mary Brown [facility] Narcolepsy, without CATAPLEXY (ICD-9-CM 347.00) Active Condition [facility] Pain of right shoulder joint Active Condition [facility] Sleep apnea Active Condition March 22, 2019 Entered By: PRAMOD KNAPP Comment: sleep study done 01/18/2015, no evidency of narcolepsy [facility] Allergies, Adverse Reactions, Alerts Combined list of allergies from [facility] and [facility] facilities. It does not include entries that were removed or entered in error. Substance Category Reaction Severity Reaction type Status Date Reported Comments Source CATS Propensity to adverse reaction (finding) Itching of eye active 5 [facility] SULFA DRUGS Propensity to adverse reactions to drug (finding) active 9 [facility] Encounters Combined list of: 1) Encounters from Department of Veterans Affairs facilities going back up to thelast 18 months. 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 Location Location Details Encounter Type Encounter Number Reason For Visit Attending Provider ADM Date DC Date Status Disposition Source [address] [place] [address] Tarik GREGORIO ([facility]Aud iology) OUTPATIENT [id number] Hearing Loss ESTEFANY MENDOZA 01/11 Released w/o Limitations [address] [place] [address] Tarik GREGORIO ([facility])(A udiolog y) [facility] Outpatient Encounter [id number] 01/03 [facility] Outpatient Encounter [id number] CASS MCCOY 11/02 [facility] Procedures Combined list of: 1) Procedures from Department of Veterans Affairs facilities going back up to thelast 18 months, not all VA non-surgical procedures are included; 2) All procedures from the Department of [facility] facilities. Procedure Procedure Type Code Date Perfomer Comments Sour e ACOUSTIC REFLEX TESTING; DECAY 01/10/2005 [facility] SUPPLY OF SPECTACLES, EXCEPT PROSTHESIS FOR APHAKIA AND LOW VISION AIDS 04/11/2004 [facility] Acoustic Reflex Testing 01/11/[address] [facility] Evoked Otoacoustic Kaya ions Limited 01/11/2005 ESTEFANY MENDOZA Threshold Audiogram (Pure Tone) Threshold Audiogram (Pure Tone) 70596 01/11/2005 ESTEFANY MENDOZA Tympanometry Tympanometry 19322 01/11/[address] [facility] Acoustic Reflex Decay Test Acoustic Reflex Decay Test 86805 01/11/2005 ESTEFANY MENDOZA Social History Combined list of available smoking, tobacco, and other social history from Department of Defense and Veterans Affairs facilities. Social History Type Response Date Comment Sourc e Tobacco smoking status INIS VA-TOBACCO NEVER USED 01/07/2019 [facility] History of tobacco use CURRENT NON-TOBACCO USER-HX OF USE 08/08/2005 [facility] History of tobacco use LIFETIME NON-TOBACCO USER 08/01/2005 [facility] History of tobacco use CURRENT NON-TOBACCO USER-HX OF USE 11/03/2001 stopped 09-17 [facility] This section is an empty social history section. DoD
--- OUTSIDE RECORDS SUMMARY | 2024-11-02 20:50 | XMS_ITS | Continuity of Care Document ---
Author Organization [facility] Address [address] [place] [address] Phone Care Team Providers Care Materials Clerk Name Role Phone Gigi Mckeon MD Unavailable [...] on Encounter Independent Medical Examination [facility], [address], [id number], [email or web address] [facility] right shoulder (chief complaint) Pain in right shoulder 0 9 Mike [place] [place] [address], [id number] , [place]. tel: [phone] [facility], [address] [place] [address], [id number], [place] tel:[email or web address] [facility] No Information 8 Mike Yu. [address] [place] [address], [id number] , [place]. tel: [phone] Family History Family Member Type Diagnosis Age At Onset No Information Payers Payer name Insurance type Covered alliance party ID Tello potts(s) [employer] [id number] Social History Type Description Quantity Date Captured [...]
== END 2024-10-30 08:24 | disposition home or self-care (01) ==
PROVIDERS: Emergency Provider Emergency Medicine; PCP Family Medicine
DX: S61.211A Laceration without foreign body of left index finger without damage to nail, initial encounter (principal); W26.0XXA Contact with knife, initial encounter; Z23 Encounter for immunization
CPT/HCPCS: 12001; 90471; 90715; 99282; J2003